=== PATIENT | male | born 1990 | race Two or more races ===

== ENCOUNTER 2020-02-17 12:49 | Emergency (ER) | payer OTHER ==
[2020-02-17 13:00] VITALS: BP 131/80; PULSE 93; RESP 20; TEMP 102.5
[2020-02-17] MEDS ORDERED: ACETAMINOPHEN TAB 325 MG TAB PO STA (13:27)
[2020-02-17] MEDS ORDERED: IBUPROFEN 600 MG TAB PO STA (13:38)
--- NOTE | 2020-02-17 14:34 | ED ---
Fever HPI - General Source: patient Mode of arrival: ambulatory Limitations: no limitations <Madeleine Osorio - Last Filed: 02/17/20 15:02> <Lindsey Montiel - Last Filed: 02/19/20 14:29> - General Chief Complaint: Fever Stated Complaint: fever, headache Time Seen by Provider: 02/17/20 13:29 - History of Present Illness Initial Comments: Patient is a 29-year-old male presenting to the emergency Department with complaints of a fever and generalized body aches for 4 days. Patient states he recently returned from [facility] and [place] one week ago. Patient states a couple days after he returned he started developing a mild headache and then low grade fevers. In the days that followed his states his fever has increased and he is having some generalized body aches, redness to his eyes as well as decreased appetite. He states he has been taking Tylenol for the fever which does decrease it. He denies history of asthma, COPD. He states he takes no medications and is very healthy. He denies any chest pain or shortness of breath. He denies any nausea or vomiting. He states he has been able to drink a lot of fluids including water and Gatorade. Patient denies any other complaints at this time. Upon arrival to the ER, patient was febrile to 102.5, rest of vitals are normal. Patient states she did take Tylenol approximately an hour and a half before arrival. (Madeleine Osorio) - Related Data Allergies Allergy/AdvReac Type Severity Reaction Status Date / Time No Known Allergies Allergy Verified 02/17/20 12:59 Review of Systems ROS Other: All systems not noted in ROS Statement are negative. <Madeleine Osorio - Last Filed: 02/17/20 15:02> ROS Other: All systems not noted in ROS Statement are negative. <Lindsey Montiel - Last Filed: 02/19/20 14:29> ROS Statement: Those systems with pertinent positive or pertinent negative responses have been documented in the HPI. Past Medical History Past Medical History: No Reported History History of Any Multi-Drug Resistant Organisms: None Reported Past Surgical History: No Surgical Hx Reported Past Psychological History: No Psychological Hx Reported Smoking Status: Never smoker Past Alcohol Use History: Occasional Past Drug Use History: None Reported <Madeleine Osorio - Last Filed: 02/17/20 15:02> General Exam Limitations: no limitations <Madeleine Osorio - Last Filed: 02/17/20 15:02> - General Exam Comments Initial Comments: GENERAL: Patient is well-developed and well-nourished. Patient is nontoxic and in no acute distress. HEAD: Atraumatic, normocephalic. EYES: Pupils equal round and reactive to light, extraocular movements intact, sclera anicteric, conjunctiva are very slightly injected bilaterally. Eyelids were unremarkable. ENT: TMs normal, nares patent, oropharynx clear without exudates. Moist mucous membranes. NECK: Normal range of motion, supple without lymphadenopathy or JVD. LUNGS: Unlabored respirations. Breath sounds clear to auscultation bilaterally and equal. No wheezes rales or rhonchi. HEART: Regular rate and rhythm without murmurs, rubs or gallops. ABDOMEN: Soft, nontender, normoactive bowel sounds. No guarding, no rebound. No masses appreciated. : Deferred MUSCULOSKELETAL: Normal extremities with adequate strength and normal range of motion, no pitting or edema. No clubbing or cyanosis. NEUROLOGICAL: Patient is alert and oriented x 3. Normal speech, normal gait. PSYCH: Normal mood, normal affect. SKIN: Warm, Dry, normal turgor, no rashes or lesions noted. (Madeleine Osorio) Course Vital Signs 02/17/20 12:55 Temperature 102.5 F H Pulse Rate 93 Respiratory 20 Rate Blood Pressure 131/80 O2 Sat by Pulse 99 Oximetry Medical Decision Making <Madeleine Osorio - Last Filed: 02/17/20 15:02> <Lindsey Montiel - Last Filed: 02/19/20 14:29> - Medical Decision Making Patient is a 29-year-old male presenting for a fever, generalized body aches, mild headache 4 days. Recently returned from [place] 1 week ago before symptoms developed. He did arrive febrile 102.5, rest of vitals normal. Patient is very healthy., takes no medications. His exam is unremarkable except for some mildly injected eyes. Chest x-ray shows no acute process. Patient was given Motrin in the ER. He did do Covid swab, that is pending. I discussed the patient is findings. I do suspect possible Covid infection. I recommended self isolating. Patient will continue with Tylenol and Motrin alternating every 4 hours for fever control. Continue to increase fluid intake. Return parameters were discussed with the patient he verbalizes understanding. He is stable for discharge. Case discussed with Dr. Montiel. (Madeleine Osorio) I was available for consultation in the emergency department. The history and physical exam were done by the midlevel provider. I was consulted for this patients care. I reviewed the case with the midlevel provider and based on their presentation of the patient, I agree with the assessment, medical decision making and plan of care as documented. Patient informed that if he has any new or worsening symptoms, he must return to the ED for further studies to include lab work, additional imaging and lumbar puncture due to headache with fever. Patient understood this and was aware of strict return parameters as the source of his infection is unknown at time of discharge. Chart was dictated using [employer] dictation software. Attempts were made to correct any dictation errors however some typographical errors may persist. Patient was seen during a national state of emergency due to the Covid-19 pandemic. (Lindsey Montiel) - Lab Data Lab Results 02/17/20 Range/Units 13:32 Coronavirus (PCR) Not Detected (Not Detected) Disposition Is patient prescribed a controlled substance at d/c from ED?: No <Madeleine Osorio - Last Filed: 02/17/20 15:02> <Lindsey Montiel - Last Filed: 02/19/20 14:29> Clinical Impression: Suspected COVID-19 virus infection, Febrile Disposition: HOME SELF-CARE Condition: Stable Instructions (If sedation given, give patient instructions): Fever in Adults (ED) Additional Instructions: Please return to the Emergency Department if symptoms worsen or any other concerns. Recommend continuing to alternate between Tylenol and Motrin every 4 hours for fever control. Continue to self isolate until COVID test results. Follow-up with PCP. Referrals: Nonstaff,Physician [Primary Care Provider] - 1-2 days
--- NOTE | 2020-02-17 14:45 | XR ---
EXAMINATION TYPE: XR chest 2V DATE OF EXAM ORDERED: 02/17/2020 HISTORY: fever. REFERENCE: None. FINDINGS: The lungs are clear. Pleural spaces are clear. Heart size is normal. IMPRESSION: NORMAL CHEST.
== END 2020-02-17 15:14 | disposition home or self-care (01) ==
LOC: EC 12:49
DX: R50.9 Fever, unspecified (principal); R51 Headache; Z20.828 Contact with and (suspected) exposure to other viral communicable diseases
CPT/HCPCS: 99283; 71046; U0003

== ENCOUNTER 2020-02-22 13:17 | Inpatient (IN) | payer OTHER ==
[2020-02-22] MEDS ORDERED: SODIUM CHLORIDE 0.9% 1,000 ML IV STA (14:27)
[2020-02-22 14:59] LABS: Basophils % (A) 1 %; Eosinophils # (A) 0.2 k/uL (0-0.7); Eosinophils % (A) 3 %; HCT 37.3 % (39.0-53.0); HGB 12.4 gm/dL (13.0-17.5); Lymphocytes # (A) 0.8 k/uL (1.0-4.8); Lymphocytes % (A) 16 %; MCH 28.2 pg (25.0-35.0); MCHC 33.2 g/dL (31.0-37.0); MCV 85.2 fL (80.0-100.0); Monocytes # (A) 0.4 k/uL (0-1.0); Monocytes % (A) 7 %; Neutrophils # (A) 3.7 k/uL (1.3-7.7); Neutrophils % (A) 72 %; Platelet Count 195 k/uL (150-450); RBC 4.38 m/uL (4.30-5.90); RDW 12.5 % (11.5-15.5); WBC 5.2 k/uL (3.8-10.6)
[2020-02-22 15:00] LABS: Appearance,Urine Clear (Clear); Bacteria,Urine Rare /hpf; Bilirubin,Urine Negative (Negative); Blood,Urine Trace (Negative); Color,Urine Yellow; Glucose,Urine (UA) Negative (Negative); Hyaline Casts,Urine 1 /lpf (0-2); Ketones,Urine Negative (Negative); Leukocyte Esterase,Urine Negative (Negative); Mucus,Urine Occasional /hpf; Nitrite,Urine Negative (Negative); PH, Urine 5.5 (5.0-8.0); Protein,Urine Trace (Negative); RBC,Urine 1 /hpf (0-5); Urobilinogen,Urine <2.0 mg/dL (<2.0); WBC,Urine <1 /hpf (0-5)
[2020-02-22 15:07] LABS: Albumin 4.2 g/dL (3.5-5.0); Calcium 8.7 mg/dL (8.4-10.2); Potassium 4.1 mmol/L (3.5-5.1); Total Bilirubin 0.6 mg/dL (0.2-1.3); Total Protein 7.2 g/dL (6.3-8.2)
--- NOTE | 2020-02-22 15:14 | XR ---
EXAMINATION TYPE: XR chest 1V portable DATE OF EXAM: 02/22/2020 CLINICAL HISTORY: Fever and headache TECHNIQUE: Portable frontal view of the chest COMPARISON: 02/17/2020 chest radiograph FINDINGS: The cardiomediastinal silhouette is within normal limits for size. Pulmonary vasculature i s normal. There is no focal air space opacity, pleural effusion, or pneumothorax seen. The osseous st ructures are intact. IMPRESSION: No acute cardiopulmonary process.
[2020-02-22] MEDS ORDERED: MORPHINE SULFATE 4 MG/ML SYRINGE IV STA (15:57)
--- NOTE | 2020-02-22 15:59 | CT ---
EXAMINATION TYPE: CT brain wo con DATE OF EXAM: 02/22/2020 COMPARISON: None INDICATION: Bilateral ear pain, mastoid tenderness, headache. DLP: 1153 mGycm, Automated exposure control for dose reduction was used. CONTRAST: None CT of the brain is performed utilizing 3 mm thick sections through the posterior fossa and 3 mm thick sections through the remaining calvarium. Study is performed within 24 hours of arrival to the hosp [facility]. No abnormal hyperdensity is present to suggest an acute intracranial hemorrhage. No mass lesion is evident. No acute infarcts are evident. Ventricles and sulci are appropriate for the patient age. Paranasal sinuses and mastoid air cells within the [id number] are clear. IMPRESSIONS: 1. Normal CT Brain
--- NOTE | 2020-02-22 16:05 | CT ---
EXAMINATION TYPE: CT iac w con DATE OF EXAM: 02/22/2020 COMPARISON: None INDICATION: Bilateral ear pain, mastoid tenderness, headache. DLP: 236.7 mGycm, Automated exposure control for dose reduction was used. CONTRAST: None CT of the internal auditory canals is performed utilizing 1 mm thick sections through the posterior f deborah and 1 mm thick sections through the remaining calvarium. Study is performed within 24 hours of arrival to the hospital. Mastoid air cells are clear. No septal destruction is evident. Internal auditory canals are normal wi thout expansion or erosion. Semicircular canals are normal. Cochlea are normal. Incus and malleus have normal orientation. Middle ears are clear. External auditory canals are clear. Paranasal sinuses within the [id number] are clear. Ostiomeatal units are patent. A right jenny bu llosa is noted, a normal variant. The scutum are normal. IMPRESSIONS: 1. Normal internal auditory canals. 2. No radiographic etiology to account for mastoid tenderness or ear pain
[2020-02-22] MEDS ORDERED: SODIUM CHLORIDE 0.9% 500 ML 500 ML IV ONE (16:08)
[2020-02-22] MEDS ORDERED: METOCLOPRAMIDE 5 MG/ML 2 ML VIAL IVP STA (16:23)
--- NOTE | 2020-02-22 16:23 | ED ---
General Adult HPI - General Source: patient, RN notes reviewed, old records reviewed Mode of arrival: ambulatory Limitations: no limitations <Migue Corrales - Last Filed: 02/22/20 19:11> <Lindsey Montiel - Last Filed: 02/25/20 00:02> - General Chief complaint: Fever Stated complaint: headache,fever Time Seen by Provider: 02/22/20 14:09 - History of Present Illness Initial comments: 29-year-old male patient with a chief complaint of headaches fevers bilateral mastoid and ear pain the last 8 days. Patient recently traveled to [place] afterwards he symptoms develop. Was previously tested for chronic versus which was negative. Patient reports that the headaches are consistent and the pain is intense. Also reports he's been having consistent fevers including one of 103.4 this morning. Denies any cough or congestion or any chest pain or shortness of breath. Denies abdominal pain nausea vomiting or diarrhea. Reports he has a decreased appetite and has had slightly decreased by mouth intake. Denies any neck stiffness or rigidity. Denies any other complaints. (Migue Corrales) - Related Data Home Medications Medication Instructions Recorded Confirmed Acetaminophen Tab [Tylenol Tab] 1,000 mg PO Q8H PRN 02/22/20 02/22/20 Ibuprofen 600 mg PO Q8H PRN 02/22/20 02/22/20 Loratadine-Pseudoeph 5-120 mg 1 tab PO Q12HR PRN 02/22/20 02/22/20 [Claritin-D 12 Hour] Magnesium Oxide [Magox 400] 400 mg PO DAILY 02/22/20 02/22/20 Previous Rx's Medication Instructions Recorded Levofloxacin [Levaquin] 750 mg PO DAILY 3 Days #3 tab 02/20/20 Allergies Allergy/AdvReac Type Severity Reaction Status Date / Time No Known Allergies Allergy Verified 02/22/20 14:35 Review of Systems ROS Other: All systems not noted in ROS Statement are negative. <Migue Corrales - Last Filed: 02/22/20 19:11> ROS Other: All systems not noted in ROS Statement are negative. <Lindsey Montiel - Last Filed: 02/25/20 00:02> ROS Statement: Those systems with pertinent positive or pertinent negative responses have been documented in the HPI. Past Medical History Past Medical History: No Reported History History of Any Multi-Drug Resistant Organisms: None Reported Past Surgical History: No Surgical Hx Reported Past Psychological History: No Psychological Hx Reported Smoking Status: Never smoker Past Alcohol Use History: Occasional Past Drug Use History: None Reported <Migue Corrales - Last Filed: 02/22/20 19:11> General Exam Limitations: no limitations <SavannaMigue Estrella - Last Filed: 02/22/20 19:11> - General Exam Comments Initial Comments: Constitutional: NAD, AOX3, Pt has pleasant affect. HEENT: NC/AT, trachea midline, neck supple, no lymphadenopathy. External ears appear normal, without discharge. Tympanic membrane pale rich bilaterally. There is a mild amount of bilateral posterior mastoid tenderness, no skin changes are noted. Mucous membranes moist. Eyes PERRLA, EOM intact. There is no scleral icterus. No pallor noted. Cardiopulmonary: RRR, no murmurs, rubs or gallops, no JVD noted. Lungs CTAB in anterior and posterior scherer. No peripheral edema. Abdominal exam: Abdomen soft and non-distended. Abdomen non-tender to palpation in all 4 quadrants. Bowel sounds active in LLQ. No hepatosplenomegaly. No ecchymosis Neuro: CN II-XII intact. No nuchal rigidity. No raccon eyes, no hunt sign, no hemotympanum. No cervical spinal tenderness. Kernig's and Brudzinski's are negative. MSK: No posterior calf tenderness bilaterally, homans sign negative bilaterally. Posterior tibialis and radial pulse +2 bilaterally. Sensation intact in upper and lower extremities. Full active ROM in upper and lower extremities, 5/5 stregnth. (Migue Corrales) Course Vital Signs 02/22/20 02/22/20 02/22/20 13:31 16:05 17:00 Temperature 99.1 F Pulse Rate 71 77 Respiratory 20 16 16 Rate Blood Pressure 127/74 150/92 O2 Sat by Pulse 100 98 Oximetry 02/22/20 02/22/20 02/22/20 17:09 18:00 19:00 Temperature Pulse Rate 73 76 74 Respiratory 16 16 16 Rate Blood Pressure 138/62 134/81 106/61 O2 Sat by Pulse 98 99 96 Oximetry 02/22/20 02/22/20 02/22/20 19:15 19:33 19:58 Temperature 102.4 F H Pulse Rate 68 82 78 Respiratory 16 16 16 Rate Blood Pressure 117/65 97/68 O2 Sat by Pulse 97 98 99 Oximetry 02/22/20 20:00 Temperature Pulse Rate Respiratory Rate Blood Pressure 145/69 O2 Sat by Pulse Oximetry Procedures - Lumbar Puncture Consent Obtained: verbal consent, written consent Indication for Procedure: headache, fever work up Patient Position: sitting upright/leaning forward Skin Prep: Povidone-Iodine 1% Local Anesthetic Used: Lidocaine 1% Spinal Needle Gauge: 20G Spinal Needle Length: 3.5in Interspace Used: L3-L4 Complications: Need to have other Practitioner Attempt, unable to obtain CSF Patient Tolerated Procedure: well <Lindsey Montiel - Last Filed: 02/25/20 00:02> Medical Decision Making - Lab Data Result diagrams: 02/22/20 14:41 02/22/20 14:41 <Migue Corrales - Last Filed: 02/22/20 19:11> - Lab Data Result diagrams: 02/24/20 06:59 02/24/20 06:59 <Lindsey Montiel - Last Filed: 02/25/20 00:02> - Medical Decision Making 29-year-old male patient no pertinent past medical history presents to ED for evaluation of headaches ear pain and fevers which have been ongoing for the last week and a half since he returned from [place] where he was with friends. Patient was previously seen in this emergency department 5 days ago he was tested for occult blood and was negative. Patient reports the headaches are constant and symptoms are persistent as well as fevers. Denies any cough congestion any other focal area of pain. Patient vital signs are stable. Physical exam displayed mild mastoid tenderness. Neurologic exam is intact. Tympanic membranes are pale rich. Patient has been on Bactrim and Levaquin without any changes in his symptoms. Laboratory investigations revealed a mildly elevated creatinine otherwise are non-impressive. CT brain without intra-articular canals with contrast are negative for acute process. Chest x- ray revealed no acute cardiopulmonary process. LP was recommended there was a significant delay as patient wanted to think about the procedure before consenting to it. It was explained in depth and patient was prompted for response on multiple occasions. Patient did consent at LP was performed. At this time patient care is being taken over by Dr. Montiel for shift change. (Migue Corrales) The patient's case was discussed with me. Because of his persistent headache, failure on 2 antibiotics with persistent fevers I did recommend lumbar puncture. Procedure was attempted by myself without success. My collegue Dr. Iglesias also attempted lumbar puncture however we was also unsuccessful. Patient was initiated on antibiotics for suspected meningitis. I recommended hospital admission with infectious disease and interventional radiology consult. Patient agreed to this. I discussed the case with Dr. Banda who agreed hospital admission. Patient is currently being transported to the floor (Lindsey Montiel) - Lab Data Lab Results 02/22/20 02/22/20 02/22/20 Range/Units 14:41 14:41 14:41 WBC 5.2 (3.8-10.6) k/uL RBC 4.38 (4.30-5.90) m/uL Hgb 12.4 L (13.0-17.5) gm/dL Hct 37.3 L (39.0-53.0) % MCV 85.2 (80.0-100.0) fL MCH 28.2 (25.0-35.0) pg MCHC 33.2 (31.0-37.0) g/dL RDW 12.5 (11.5-15.5) % Plt Count 195 (150-450) k/uL Neutrophils % 72 % Lymphocytes % 16 % Monocytes % 7 % Eosinophils % 3 % Basophils % 1 % Neutrophils # 3.7 (1.3-7.7) k/uL Lymphocytes # 0.8 L (1.0-4.8) k/uL Monocytes # 0.4 (0-1.0) k/uL Eosinophils # 0.2 (0-0.7) k/uL Basophils # 0.0 (0-0.2) k/uL Sodium 138 (137-145) mmol/L Potassium 4.1 (3.5-5.1) mmol/L Chloride 102 (98-107) mmol/L Carbon Dioxide 27 (22-30) mmol/L Anion Gap 9 mmol/L BUN 17 (9-20) mg/dL Creatinine 1.51 H (0.66-1.25) mg/dL Est GFR (CKD-EPI)AfAm 71 (>60 ml/min/1.73 sqM) Est GFR (CKD-EPI)NonAf 61 (>60 ml/min/1.73 sqM) Glucose 99 (74-99) mg/dL Plasma Lactic Acid Markel (0.7-2.0) mmol/L Calcium 8.7 (8.4-10.2) mg/dL Total Bilirubin 0.6 (0.2-1.3) mg/dL AST 30 (17-59) U/L ALT 22 (4-49) U/L Alkaline Phosphatase 61 (38-126) U/L Total Protein 7.2 (6.3-8.2) g/dL Albumin 4.2 (3.5-5.0) g/dL Urine Color Yellow Urine Appearance Clear (Clear) Urine pH 5.5 (5.0-8.0) Ur Specific [place] 1.020 (1.001-1.035) Urine Protein Trace H (Negative) Urine Glucose (UA) Negative (Negative) Urine Ketones Negative (Negative) Urine Blood Trace H (Negative) Urine Nitrite Negative (Negative) Urine Bilirubin Negative (Negative) Urine Urobilinogen <2.0 (<2.0) mg/dL Ur Leukocyte Esterase Negative (Negative) Urine RBC 1 (0-5) /hpf Urine WBC <1 (0-5) /hpf Urine Bacteria Rare H (None) /hpf Hyaline Casts 1 (0-2) /lpf Urine Mucus Occasional H (None) /hpf Coronavirus (PCR) (Not Detected) 02/22/20 02/22/20 Range/Units 14:41 14:41 WBC (3.8-10.6) k/uL RBC (4.30-5.90) m/uL Hgb (13.0-17.5) gm/dL Hct (39.0-53.0) % MCV (80.0-100.0) fL MCH (25.0-35.0) pg MCHC (31.0-37.0) g/dL RDW (11.5-15.5) % Plt Count (150-450) k/uL Neutrophils % % Lymphocytes % % Monocytes % % Eosinophils % % Basophils % % Neutrophils # (1.3-7.7) k/uL Lymphocytes # (1.0-4.8) k/uL Monocytes # (0-1.0) k/uL Eosinophils # (0-0.7) k/uL Basophils # (0-0.2) k/uL Sodium (137-145) mmol/L Potassium (3.5-5.1) mmol/L Chloride (98-107) mmol/L Carbon Dioxide (22-30) mmol/L Anion Gap mmol/L BUN (9-20) mg/dL Creatinine (0.66-1.25) mg/dL Est GFR (CKD-EPI)AfAm (>60 ml/min/1.73 sqM) Est GFR (CKD-EPI)NonAf (>60 ml/min/1.73 sqM) Glucose (74-99) mg/dL Plasma Lactic Acid Markel 0.5 L (0.7-2.0) mmol/L Calcium (8.4-10.2) mg/dL Total Bilirubin (0.2-1.3) mg/dL AST (17-59) U/L ALT (4-49) U/L Alkaline Phosphatase (38-126) U/L Total Protein (6.3-8.2) g/dL Albumin (3.5-5.0) g/dL Urine Color Urine Appearance (Clear) Urine pH (5.0-8.0) Ur Specific [place] (1.001-1.035) Urine Protein (Negative) Urine Glucose (UA) (Negative) Urine Ketones (Negative) Urine Blood (Negative) Urine Nitrite (Negative) Urine Bilirubin (Negative) Urine Urobilinogen (<2.0) mg/dL Ur Leukocyte Esterase (Negative) Urine RBC (0-5) /hpf Urine WBC (0-5) /hpf Urine Bacteria (None) /hpf Hyaline Casts (0-2) /lpf Urine Mucus (None) /hpf Coronavirus (PCR) Not Detected (Not Detected) Disposition <Migue Corrales - Last Filed: 02/22/20 19:11> Is patient prescribed a controlled substance at d/c from ED?: No Decision to Admit Reason: Admit from EC Decision Date: 02/22/20 Decision Time: 19:40 <Lindsey Montiel - Last Filed: 02/25/20 00:02> Clinical Impression: Febrile, Headache Disposition: ADMITTED IP TO THIS HOSP Condition: Serious
[2020-02-22] MEDS ORDERED: LIDOCAINE 1% INJ 10MG/ML (20 ML MDV) SQ STA (18:21)
[2020-02-22] MEDS ORDERED: MORPHINE SULFATE 4 MG/ML SYRINGE IVP STA (18:48)
[2020-02-22] MEDS ORDERED: ONDANSETRON 4 MG/2 ML VIAL IVP STA (19:00)
[2020-02-22] MEDS ORDERED: VANCOMYCIN IV PER PHARMACY 1 EACH MISC MISCELLANE PRN ×2 (19:08→20:45)
[2020-02-22] MEDS ORDERED: ACYCLOVIR SODIUM 1,150 MG in SODIUM CHLORIDE 0.9% 250 ML IV ONE (19:09)
[2020-02-22] MEDS ORDERED: VANCOMYCIN 1,750 MG in SODIUM CHLORIDE 0.9% 500 ML 500 ML IVPB STA (19:13)
[2020-02-22] MEDS ORDERED: ACETAMINOPHEN TAB 325 MG TAB PO STA (19:38)
[2020-02-22] MEDS ORDERED: MORPHINE SULFATE 4 MG/ML SYRINGE IV PRN (19:41)
[2020-02-22] MEDS ORDERED: IBUPROFEN 400 MG TAB PO PRN (19:41)
[2020-02-22] MEDS ORDERED: NALOXONE 0.4 MG/ML 1 ML VIAL IV PRN (19:41)
[2020-02-22] MEDS ORDERED: ACETAMINOPHEN TAB 325 MG TAB PO PRN (19:41)
[2020-02-22] MEDS: SODIUM CHLORIDE 0.9% 1,000 ML IV SCH (20:37)
[2020-02-22 21:11] LABS: D-Dimer 0.72 mg/L FEU (<0.60); INR 1.1 (<1.2); Prothrombin Time 10.9 sec (9.0-12.0)
[2020-02-22 21:17] LABS: C Reactive Protein 65.7 mg/L (<10.0); Phosphorus 2.5 mg/dL (2.5-4.5)
--- NOTE | 2020-02-22 22:19 | P.HPIM ---
History of Present Illness H&P Date: 02/22/20 Chief Complaint: fever of 8 days duration 29 year old male with no significant past medical history patient comes in with 8 days history of fever and chills. he reprots recent travel by air with family to [place] , limited contact with only people close within the family , none of them seem to be sick. few days after returning he started having fevers, chills, and severe headaches. no other reported symptoms . he denies any GI changes, denies nausea vomiting, SOB, or chest pain , denies myalgias. he reports severe throbbing headache, frontal radiates to both sides and the back of his head and neck, no neck stiffness, no focal neuro deficits. he denies any URI symptoms, or changes in taste or smell sensation . he is in good health otherwise, denies taking any medications or illegal drugs. he only drinks few beers occasionally . he was evaluated by a doctor virtually and was initially started on bactrim (received one or two doses) , then switched to levaquin (received 3 doses )no much benefit with either, he was evaluated in our ED 5 days ago and COVID swab was negative. he comes in again today due to worsening headache, and persistent fever. no other symptoms no one else sick in his family in the ED, blood work over all unremarkable . patient suspected to have meningitis, failed two attempts at getting LP. he was started on broad empiric antibiotic coverage. and admitted for close monitoring repeated COVID swab done in the ED Review of Systems Pertinent positives as noted in HPI. All other systems were reviewed and are negative Past Medical History Past Medical History: No Reported History History of Any Multi-Drug Resistant Organisms: None Reported Past Surgical History: No Surgical Hx Reported Past Psychological History: No Psychological Hx Reported Smoking Status: Never smoker Past Alcohol Use History: Occasional Past Drug Use History: None Reported Medications and Allergies Home Medications Medication Instructions Recorded Confirmed Type Levofloxacin [Levaquin] 750 mg PO DAILY 3 Days #3 tab 02/20/20 02/22/20 Rx Acetaminophen Tab [Tylenol Tab] 1,000 mg PO Q8H PRN 02/22/20 02/22/20 History Ibuprofen 600 mg PO Q8H PRN 02/22/20 02/22/20 History Loratadine-Pseudoeph 5-120 mg 1 tab PO Q12HR PRN 02/22/20 02/22/20 History [Claritin-D 12 Hour] Magnesium Oxide [Magox 400] 400 mg PO DAILY 02/22/20 02/22/20 History Allergies Allergy/AdvReac Type Severity Reaction Status Date / Time No Known Allergies Allergy Verified 02/22/20 14:35 Physical Exam Vitals: Vital Signs Temp Pulse Resp BP Pulse Ox 02/22/20 20:00 145/69 02/22/20 19:58 78 16 99 02/22/20 19:33 102.4 F H 82 16 97/68 98 02/22/20 19:15 68 16 117/65 97 02/22/20 19:00 74 16 106/61 96 02/22/20 18:00 76 16 134/81 99 02/22/20 17:09 73 16 138/62 98 02/22/20 17:00 16 02/22/20 16:05 77 16 150/92 98 02/22/20 13:31 99.1 F 71 20 127/74 100 Intake and Output 02/22/20 02/22/20 02/22/20 06:59 14:59 22:59 Intake Total 1500 Balance 1500 Intake: Amount of Fluid Infused ( 1500 ml) Other: Weight 113.398 kg Constitutional: No acute distress, conversant, pleasant Eyes: Anicteric sclerae, moist conjunctiva, Pupils equal round reactive to light ENMT: NC/AT Oropharynx clear, no erythema, or exudates Neck: no nuchal rigidity , Supple, FROM, no masses, or JVD No carotid bruits No thyromegaly Lungs: Clear to auscultation Clear to percussion Normal respiratory effort, no accessory muscle use Cardiovascular: Heart regular in rate and rhythm, No murmurs, gallops, or rubs No peripheral edema Abdominal: Soft Nontender, no guarding, rebound or rigidity Abdomen moving with respiration Normoactive bowel sounds No hepatomegaly, No splenomegaly No palpable mass No abdominal wall hernia noted Skin: Normal temperature, tone, texture, turgor No induration No subcutaneous nodules No rash, lesions No ulcers Extremities: No digital cyanosis No clubbing Pedal pulses intact and symmetrical Radial pulses intact and symmetrical No calf tenderness Psychiatric: Alert and oriented to person, place and time Appropriate affect fair judgement Neuro Muscles Strength 5/5 in all 4 extremities Sensation to light touch grossly present throughout Cranial nerves II-XII grossly intact No focal sensory deficits Lymphatics: no palpable cervical or supraclavicular , or inguinal lymph nodes Results CBC & Chem 7: 02/22/20 14:41 02/22/20 14:41 Labs: Abnormal Lab Results - Last 24 Hours (Table) 02/22/20 02/22/20 02/22/20 Range/Units 14:41 14:41 14:41 Hgb 12.4 L (13.0-17.5) gm/dL Hct 37.3 L (39.0-53.0) % Lymphocytes # 0.8 L (1.0-4.8) k/uL Creatinine 1.51 H (0.66-1.25) mg/dL Plasma Lactic Acid Markel (0.7-2.0) mmol/L Urine Protein Trace H (Negative) Urine Blood Trace H (Negative) Urine Bacteria Rare H (None) /hpf Urine Mucus Occasional H (None) /hpf 02/22/20 Range/Units 14:41 Hgb (13.0-17.5) gm/dL Hct (39.0-53.0) % Lymphocytes # (1.0-4.8) k/uL Creatinine (0.66-1.25) mg/dL Plasma Lactic Acid Markel 0.5 L (0.7-2.0) mmol/L Urine Protein (Negative) Urine Blood (Negative) Urine Bacteria (None) /hpf Urine Mucus (None) /hpf Assessment and Plan Assessment: acute fever, with headache high suspicion of COVID 19 infection , rule out meningitis failed two attempts of LP in the ED, patient started on empiric ABx coverage including antiviral ID consultation isolation , contact and droplet for prognostic and rish stratification of COIVD 19 check INR, D dimer , PCT, CPK, Trop, ferritin , CRP, LDH symptomatic control follow up blood culture IVF hydration with normal saline normal WBC with lymphocytopenia CODE STATUS:full code DVT prophylaxis: heparin sc Discussed with: Patient, ER, RN Anticipated length of stay > than [address]: home A total of 75 minutes was spent on the care of this complex patient more than 50% of the time was spent in counseling and care coordination.
[2020-02-22] MEDS: HEPARIN SODIUM,PORCINE 5,000 UNIT/ML 1 ML VIAL SQ SCH (23:48)
[2020-02-23] MEDS ORDERED: ACYCLOVIR SODIUM 1,000 MG in SODIUM CHLORIDE 0.9% 250 ML IVPB SCH ×2
[2020-02-23] MEDS: ACETAMINOPHEN TAB 325 MG TAB PO PRN ×2 (02:29→09:36)
[2020-02-23 03:35] LABS: Ferritin 338.7 ng/mL (22.0-322.0)
[2020-02-23] MEDS: ACYCLOVIR SODIUM IVPB SCH ×3 (04:22→20:56)
[2020-02-23] MEDS: ONDANSETRON 4 MG/2 ML VIAL IVP PRN (04:22)
[2020-02-23] MEDS: SODIUM CHLORIDE 0.9% IVPB SCH ×3 (04:22→20:56)
[2020-02-23 07:46] LABS: Basophils % (A) 0 %; Eosinophils # (A) 0.1 k/uL (0-0.7); Eosinophils % (A) 2 %; HCT 33.3 % (39.0-53.0); HGB 10.9 gm/dL (13.0-17.5); Lymphocytes # (A) 0.8 k/uL (1.0-4.8); Lymphocytes % (A) 15 %; MCH 27.9 pg (25.0-35.0); MCHC 32.6 g/dL (31.0-37.0); MCV 85.6 fL (80.0-100.0); Mean Platelet Volume 7.9; Monocytes # (A) 0.4 k/uL (0-1.0); Monocytes % (A) 7 %; Neutrophils # (A) 3.9 k/uL (1.3-7.7); Neutrophils % (A) 75 %; Platelet Count 173 k/uL (150-450); RBC 3.88 m/uL (4.30-5.90); RDW 12.4 % (11.5-15.5); WBC 5.2 k/uL (3.8-10.6)
[2020-02-23 07:56] LABS: Albumin 3.5 g/dL (3.5-5.0); Calcium 7.9 mg/dL (8.4-10.2); Potassium 3.9 mmol/L (3.5-5.1); Total Bilirubin 0.4 mg/dL (0.2-1.3); Total Protein 6.2 g/dL (6.3-8.2)
[2020-02-23] MEDS ORDERED: MORPHINE SULFATE 2 MG/ML SYRINGE IV PRN (08:15)
[2020-02-23] MEDS ORDERED: VANCOMYCIN 1,750 MG in SODIUM CHLORIDE 0.9% 500 ML 500 ML IVPB SCH (09:00)
[2020-02-23] MEDS: HEPARIN SODIUM,PORCINE 5,000 UNIT/ML 1 ML VIAL SQ SCH ×3 (09:37→23:00)
--- NOTE | 2020-02-23 14:24 | P.PN ---
Subjective Progress Note Date: 02/23/20 Patient is still complaining of headache this morning. He rated his headache as 10 out of 10. He denies fevers or chills. No shortness of breath or cough. No diarrhea. Objective - Vital Signs Vital signs: Vital Signs Temp 98.0 F 02/23/20 13:44 Pulse 102 H 02/23/20 13:44 Resp 17 02/23/20 13:44 BP 130/77 02/23/20 13:44 Pulse Ox 99 02/23/20 13:44 Intake & Output 02/22/20 02/23/20 02/23/20 18:59 06:59 18:59 Intake Total 2550 1100 Balance 2550 1100 Weight 113.398 kg 113.398 kg Intake: Amount of Fluid Infused ( 1500 ml) Intake, IV Titration 500 Amount Vancomycin 1,750 mg In 500 Sodium Chloride 0.9% 500 ml 500 ml @ 167 mls/hr IVPB ONCE [facility] Rx#: [id number] Oral 1050 600 Other: Voiding Method Toilet Toilet # Voids 2 3 # Bowel Movements 1 - Exam General: The patient is awake and alert, in no distress Eye: there is normal conjunctiva bilaterally. Neck: The neck is supple, there is no JVD. Cardiovascular: Normal S1-S2, no S3-S4, no murmurs. Respiratory: Lungs clear to auscultation bilaterally Gastrointestinal: Abdomen is soft, nontender Musculoskeletal: There is no pedal edema. Neurological:. Speech is normal. Skin: Skin is warm and dry - Labs CBC & Chem 7: 02/23/20 07:02 02/23/20 07:02 Labs: Abnormal Lab Results - Last 24 Hours (Table) 02/22/20 02/22/20 02/22/20 Range/Units 14:41 14:41 14:41 RBC (4.30-5.90) m/uL Hgb 12.4 L (13.0-17.5) gm/dL Hct 37.3 L (39.0-53.0) % Lymphocytes # 0.8 L (1.0-4.8) k/uL D-Dimer (<0.60) mg/L FEU Creatinine 1.51 H (0.66-1.25) mg/dL Plasma Lactic Acid Markel (0.7-2.0) mmol/L Calcium (8.4-10.2) mg/dL Ferritin (22.0-322.0) ng/mL Troponin I (0.000-0.034) ng/mL C-Reactive Protein (<10.0) mg/L Total Protein (6.3-8.2) g/dL Procalcitonin (0.02-0.09) ng/mL Urine Protein Trace H (Negative) Urine Blood Trace H (Negative) Urine Bacteria Rare H (None) /hpf Urine Mucus Occasional H (None) /hpf 02/22/20 02/22/20 02/22/20 Range/Units 14:41 20:40 20:40 RBC (4.30-5.90) m/uL Hgb (13.0-17.5) gm/dL Hct (39.0-53.0) % Lymphocytes # (1.0-4.8) k/uL D-Dimer 0.72 H (<0.60) mg/L FEU Creatinine (0.66-1.25) mg/dL Plasma Lactic Acid Markel 0.5 L (0.7-2.0) mmol/L Calcium (8.4-10.2) mg/dL Ferritin 338.7 H (22.0-322.0) ng/mL Troponin I (0.000-0.034) ng/mL C-Reactive Protein 65.7 H (<10.0) mg/L Total Protein (6.3-8.2) g/dL Procalcitonin (0.02-0.09) ng/mL Urine Protein (Negative) Urine Blood (Negative) Urine Bacteria (None) /hpf Urine Mucus (None) /hpf 02/22/20 02/22/20 02/23/20 Range/Units 20:40 20:40 07:02 RBC 3.88 L (4.30-5.90) m/uL Hgb 10.9 L (13.0-17.5) gm/dL Hct 33.3 L (39.0-53.0) % Lymphocytes # 0.8 L (1.0-4.8) k/uL D-Dimer (<0.60) mg/L FEU Creatinine (0.66-1.25) mg/dL Plasma Lactic Acid Markel (0.7-2.0) mmol/L Calcium (8.4-10.2) mg/dL Ferritin (22.0-322.0) ng/mL Troponin I 0.045 H* (0.000-0.034) ng/mL C-Reactive Protein (<10.0) mg/L Total Protein (6.3-8.2) g/dL Procalcitonin 0.20 H (0.02-0.09) ng/mL Urine Protein (Negative) Urine Blood (Negative) Urine Bacteria (None) /hpf Urine Mucus (None) /hpf 02/23/20 Range/Units 07:02 RBC (4.30-5.90) m/uL Hgb (13.0-17.5) gm/dL Hct (39.0-53.0) % Lymphocytes # (1.0-4.8) k/uL D-Dimer (<0.60) mg/L FEU Creatinine 1.43 H (0.66-1.25) mg/dL Plasma Lactic Acid Markel (0.7-2.0) mmol/L Calcium 7.9 L (8.4-10.2) mg/dL Ferritin (22.0-322.0) ng/mL Troponin I (0.000-0.034) ng/mL C-Reactive Protein (<10.0) mg/L Total Protein 6.2 L (6.3-8.2) g/dL Procalcitonin (0.02-0.09) ng/mL Urine Protein (Negative) Urine Blood (Negative) Urine Bacteria (None) /hpf Urine Mucus (None) /hpf Assessment and Plan Assessment: acute fever, with headache high suspicion of COVID 19 infection , rule out meningitis Acute kidney injury failed two attempts of LP in the ED, patient started on empiric ABx coverage including antiviral ID consultation pending isolation , contact and droplet Elevated D dimer , CRP, Trop, ferritin , and pro-calcitonin symptomatic control follow up blood culture IVF hydration with normal saline at 75 mL per hour normal WBC with lymphocytopenia DVT prophylaxis with subcu heparin Repeat lab work in the morning
[2020-02-23] MEDS: BUTALB/APAP/CAFF 50-325-40MG TAB PO PRN ×3 (15:33→22:56)
--- NOTE | 2020-02-23 16:23 | P.CONS ---
History of Present Illness - Reason for Consult Consult date: 02/23/20 Possible meningitis Requesting physician: Shu Dunbar - Chief Complaint Fever and headache 1 week - History of Present Illness Patient is a 29-year-old male otherwise healthy presenting to the ER with a chief complaints of worsening headache and fever, the patient's symptoms started about a week ago, patient did have a travel to [place] a week prior to his symptoms started patients say that he went to a rented house and did brought his mom back with him to [place] patient did not have any other social interaction with anybody else and his mom currently do not have any symptoms, the patient's symptoms started around 02/13/2020 and the patient was seen for the same symptoms on 02/17/2020 at [facility], patient did have abnormal chest x-ray patient was advised Tylenol and Motrin along with self isolation with the patient has been doing for the next 4 days without any improvement, hence he presented back to the [facility] ER yesterday that is 02/22/2020, Patient was complaining of some pain into his left ear as well as the patient did have a chest x-ray reported negative for acute infiltrate. CT of the brain was negative CT of the internal auditory canal was negative as well, patient did have multiple times for lumbar puncture yesterday and it could not be completed, patient presented to the hospital did have a fever of 102.4F, no fever this morning, patient did have a normal white count with lymphopenia his kidney function was slightly elevated liver enzymes are normal troponin is mildly elevated 0.045, the patient denies having any chest pain or shortness of breath patient did have elevated CRP however his pro-calcitonin is elevated as well, patient was started on Rocephin and vancomycin and acyclovir has been admitted to the hospital infectious disease was consulted for further management of antibiotic therapy. Patient at that time of my evaluation early this afternoon is afebrile he still complaining of headache which is generalized throbbing and almost 10 out of 10 did have an episode of vomiting denies having any chest pain or shortness of breath no cough no abdominal pain and no diarrhea Review of Systems Positive point has been mentioned in the HPI rest of the systems are negative Past Medical History Past Medical History: No Reported History History of Any Multi-Drug Resistant Organisms: None Reported Past Surgical History: No Surgical Hx Reported Past Anesthesia/Blood Transfusion Reactions: No Reported Reaction Past Psychological History: No Psychological Hx Reported Smoking Status: Never smoker Past Alcohol Use History: Occasional Past Drug Use History: None Reported Medications and Allergies Home Medications Medication Instructions Recorded Confirmed Type Levofloxacin [Levaquin] 750 mg PO DAILY 3 Days #3 tab 02/20/20 02/22/20 Rx Acetaminophen Tab [Tylenol Tab] 1,000 mg PO Q8H PRN 02/22/20 02/22/20 History Ibuprofen 600 mg PO Q8H PRN 02/22/20 02/22/20 History Loratadine-Pseudoeph 5-120 mg 1 tab PO Q12HR PRN 02/22/20 02/22/20 History [Claritin-D 12 Hour] Magnesium Oxide [Magox 400] 400 mg PO DAILY 02/22/20 02/22/20 History Allergies Allergy/AdvReac Type Severity Reaction Status Date / Time No Known Allergies Allergy Verified 02/22/20 14:35 Physical Exam Vitals: Vital Signs Temp Pulse Pulse Resp BP BP Pulse Ox 02/23/20 13:44 98.0 F 102 H 17 130/77 99 02/23/20 08:00 69 18 02/23/20 07:00 99.4 F 69 18 157/82 100 02/23/20 02:30 99.8 F H 72 114/72 98 02/22/20 20:35 100.1 F H 77 17 128/75 96 02/22/20 20:00 145/69 02/22/20 19:58 78 16 99 02/22/20 19:33 102.4 F H 82 16 97/68 98 02/22/20 19:15 68 16 117/65 97 02/22/20 19:00 74 16 106/61 96 02/22/20 18:00 76 16 134/81 99 02/22/20 17:09 73 16 138/62 98 02/22/20 17:00 16 02/22/20 16:05 77 16 150/92 98 Intake and Output 02/23/20 02/23/20 02/23/20 06:59 14:59 22:59 Intake Total 300 1100 Balance 300 1100 Intake: Intake, IV Titration 500 Amount Vancomycin 1,750 mg In 500 Sodium Chloride 0.9% 500 ml 500 ml @ 167 mls/hr IVPB ONCE [facility] Rx#: [id number] Oral 300 600 Other: Voiding Method Toilet # Voids 2 3 # Bowel Movements 1 GENERAL DESCRIPTION: Middle-aged male up in the room, no distress. No tachypnea or accessory muscle of respiration use. HEENT: Shows Pallor , no scleral icterus. Oral mucous membrane is dry. No pharyngeal erythema or thrush NECK: Trachea central, no thyromegaly. LUNGS: Unlabored breathing. Clear to auscultation anteriorly. No wheeze or crackle. HEART: S1, S2, regular rate and rhythm. No loud murmur ABDOMEN: Soft, no tenderness , guarding or rigidity, no organomegaly EXTREMITIES: No edema of feet. SKIN: No rash, no masses palpable. NEUROLOGICAL: The patient is awake, alert, oriented x3, mood and affect normal. Results CBC & Chem 7: 02/23/20 07:02/23/20 07: Labs: Abnormal Lab Results - Last 24 Hours (Table) 02/22/20 02/22/20 02/22/20 Range/Units 20:40 20:40 20:40 RBC (4.30-5.90) m/uL Hgb (13.0-17.5) gm/dL Hct (39.0-53.0) % Lymphocytes # (1.0-4.8) k/uL D-Dimer 0.72 H (<0.60) mg/L FEU Creatinine (0.66-1.25) mg/dL Calcium (8.4-10.2) mg/dL Ferritin 338.7 H (22.0-322.0) ng/mL Troponin I 0.045 H* (0.000-0.034) ng/mL C-Reactive Protein 65.7 H (<10.0) mg/L Total Protein (6.3-8.2) g/dL Procalcitonin (0.02-0.09) ng/mL 02/22/20 02/23/20 02/23/20 Range/Units 20:40 07:02 07:02 RBC 3.88 L (4.30-5.90) m/uL Hgb 10.9 L (13.0-17.5) gm/dL Hct 33.3 L (39.0-53.0) % Lymphocytes # 0.8 L (1.0-4.8) k/uL D-Dimer (<0.60) mg/L FEU Creatinine 1.43 H (0.66-1.25) mg/dL Calcium 7.9 L (8.4-10.2) mg/dL Ferritin (22.0-322.0) ng/mL Troponin I (0.000-0.034) ng/mL C-Reactive Protein (<10.0) mg/L Total Protein 6.2 L (6.3-8.2) g/dL Procalcitonin 0.20 H (0.02-0.09) ng/mL Assessment and Plan Assessment: 1- patient presented to hospital with fever and headache that has been going on for more than a week now the patient did have a nasopharyngeal swab for COVID 19 done on February 16 that was negative patient currently do not have any respiratory symptoms and chest x-ray has been negative clinical suspicious low for viral pneumonia, with predominantly headache and a fever may concern is for meningitis. 2- the patient also have mildly elevated troponin though his CPKs were normal and the patient currently do not have any symptoms of chest pain or shortness of breath that could point towards possible pericarditis to be etiology of his fe mary though may benefit from serial cardiac enzymes and possible echocardiogram or cardiology evaluation, this was discussed in detail with the admitting physician (1) Febrile Current Visit: Yes Status: Acute Code(s): R50.9 - FEVER, UNSPECIFIED SNOMED Code(s): 012621110 (2) Suspected COVID-19 virus infection Current Visit: No Status: Acute Code(s): Z20.828 - CONTACT W AND EXPOSURE TO OTH VIRAL COMMUNICABLE DISEASES SNOMED Code(s): 448631986 Plan: 1- we will consult anesthesia for a stat lumbar puncture fluid should be sent for cell count differential glucose protein and HSV DNA by PCR 2- may benefit from serial cardiac enzymes and an echocardiogram 3- continue with current broad-spectrum antibiotic in the form of Rocephin and vancomycin and acyclovir while awaiting further workup to be completed and monitor his kidney function closely We will follow on clinical condition and cultures to further adjust medication i f needed Thank you for this consultation will follow this patient with you Time with Patient: Greater than 30
[2020-02-23] MEDS: SODIUM CHLORIDE 0.9% 1,000 ML IV SCH ×3 (19:12→22:59)
[2020-02-23] MEDS: VANCOMYCIN 2,000 MG in SODIUM CHLORIDE 0.9% 500 ML 500 ML IVPB SCH (20:55)
[2020-02-23] MEDS: MELATONIN 3 MG TABLET PO SCH (22:56)
[2020-02-24] MEDS: ACYCLOVIR SODIUM IVPB SCH ×3 (05:25→20:53)
[2020-02-24] MEDS: SODIUM CHLORIDE 0.9% IVPB SCH ×3 (05:25→20:53)
[2020-02-24] MEDS: ONDANSETRON 4 MG/2 ML VIAL IVP PRN (05:25)
[2020-02-24] MEDS: BUTALB/APAP/CAFF 50-325-40MG TAB PO PRN ×4 (05:28→16:57)
[2020-02-24 07:19] LABS: Basophils % (A) 0 %; Eosinophils # (A) 0.1 k/uL (0-0.7); Eosinophils % (A) 2 %; HCT 32.1 % (39.0-53.0); HGB 10.7 gm/dL (13.0-17.5); Lymphocytes # (A) 0.8 k/uL (1.0-4.8); Lymphocytes % (A) 16 %; MCH 28.1 pg (25.0-35.0); MCHC 33.2 g/dL (31.0-37.0); MCV 84.8 fL (80.0-100.0); Mean Platelet Volume 8.6; Monocytes # (A) 0.3 k/uL (0-1.0); Monocytes % (A) 6 %; Neutrophils % (A) 75 %; Platelet Count 167 k/uL (150-450); RBC 3.79 m/uL (4.30-5.90); RDW 12.3 % (11.5-15.5); WBC 5.4 k/uL (3.8-10.6)
[2020-02-24 07:30] LABS: Calcium 8.2 mg/dL (8.4-10.2); Potassium 3.8 mmol/L (3.5-5.1)
[2020-02-24] MEDS: VANCOMYCIN 2,000 MG in SODIUM CHLORIDE 0.9% 500 ML 500 ML IVPB SCH ×2 (09:02→20:01)
[2020-02-24] MEDS: HEPARIN SODIUM,PORCINE 5,000 UNIT/ML 1 ML VIAL SQ SCH ×3 (09:02→23:11)
--- NOTE | 2020-02-24 18:13 | P.PN ---
Subjective Patient is still complaining of headache today. No fevers or chills. Objective - Vital Signs Vital signs: Vital Signs Temp 97.7 F 02/24/20 14:58 Pulse 64 02/24/20 15:31 Resp 18 02/24/20 15:31 BP 136/84 02/24/20 14:58 Pulse Ox 98 02/24/20 14:58 Intake & Output 02/23/20 02/24/20 02/24/20 18:59 06:59 18:59 Intake Total 1100 1400 1850 Balance 1100 1400 1850 Intake: Intake, IV Titration 500 1400 1400 Amount Acyclovir Sodium 1,100 mg 250 250 In Sodium Chloride 0.9% 250 ml @ 270 mls/hr IVPB Q8H [facility] Rx#:[id number] Sodium Chloride 0.9% 1, 600 600 000 ml @ 75 mls/hr IV . [id number] [facility] Rx#:[id number] Vancomycin 1,750 mg In 500 Sodium Chloride 0.9% 500 ml 500 ml @ 167 mls/hr IVPB ONCE [facility] Rx#: [id number] Vancomycin 2,000 mg In 500 500 Sodium Chloride 0.9% 500 ml 500 ml @ 167 mls/hr IVPB Q12H [facility] Rx#: [id number] cefTRIAXone 2 gm In 50 50 Sodium Chloride 0.9% 50 ml @ 100 mls/hr IVPB Q12HR [facility] Rx#:[id number] Oral 600 450 Other: Voiding Method Toilet Toilet Toilet # Voids 3 2 3 # Bowel Movements 1 - Exam General: The patient is awake and alert, in no distress Eye: there is normal conjunctiva bilaterally. Neck: The neck is supple, there is no JVD. Cardiovascular: Normal S1-S2, no S3-S4, no murmurs. Respiratory: Lungs clear to auscultation bilaterally Gastrointestinal: Abdomen is soft, nontender Musculoskeletal: There is no pedal edema. Neurological:. Speech is normal. Skin: Skin is warm and dry - Labs CBC & Chem 7: 02/24/20 06:59 02/24/20 06:59 Labs: Abnormal Lab Results - Last 24 Hours (Table) 02/24/20 02/24/20 Range/Units 06:59 06:59 RBC 3.79 L (4.30-5.90) m/uL Hgb 10.7 L (13.0-17.5) gm/dL Hct 32.1 L (39.0-53.0) % Lymphocytes # 0.8 L (1.0-4.8) k/uL Sodium 136 L (137-145) mmol/L Creatinine 1.38 H (0.66-1.25) mg/dL Glucose 100 H (74-99) mg/dL Calcium 8.2 L (8.4-10.2) mg/dL Microbiology - Last 24 Hours (Table) 02/22/20 14:41 Blood Culture - Preliminary Blood No Growth after 48 hours Assessment and Plan Assessment: acute fever, with headache, need to rule out meningitis COVID 19 infection ruled out Acute kidney injury Troponin elevation on presentation, most likely non-thrombotic troponin leak. Repeat troponin negative. Echocardiogram ordered for further evaluation. failed two attempts of LP in the ED, patient started on empiric ABx coverage including antiviral ID consultation appreciated Blood culture negative to date Awaiting lumbar puncture by IR possibly tomorrow symptomatic control follow up blood culture IVF hydration with normal saline at 75 mL per hour DVT prophylaxis with subcu heparin Repeat lab work in the morning
[2020-02-24] MEDS: SODIUM CHLORIDE 0.9% 1,000 ML IV SCH (19:50)
[2020-02-24] MEDS: ACETAMINOPHEN TAB 325 MG TAB PO PRN (20:09)
[2020-02-24] MEDS ORDERED: SUMAtriptan succinate 25 MG TAB PO STA (20:56)
[2020-02-24] MEDS: MELATONIN 3 MG TABLET PO SCH (23:11)
--- NOTE | 2020-02-25 00:21 | PN ---
PROGRESS NOTE DATE OF SERVICE: 02/24/2020 REASON FOR FOLLOWUP: Headache, fever and question of meningitis. INTERVAL HISTORY: The patient is currently afebrile. No fever has been recorded since yesterday morning. The patient's headache has improved, currently controlled with medications he is receiving. No further vomiting. No chest pain, shortness of breath or cough. No abdominal pain, no diarrhea. PHYSICAL EXAMINATION: Blood pressure 136/84 with a pulse of 64, temperature 97.7. He is 98% on room air. General description is a young male up in the bed in no distress. RESPIRATORY SYSTEM: Unlabored breathing, clear to auscultation. No wheeze or crackle. HEART: S1, S2. Regular rate and rhythm. ABDOMEN: Soft, no tenderness. LABS: Hemoglobin is 10.7, white count 5.4 BUN of 17, creatinine 1.38. Repeat troponin came back negative. Liver enzymes are normal. PCR elevated at 65.7: [place] PCR came back negative. DIAGNOSTIC IMPRESSION AND PLAN: Patient with fever and headache with concern for meningitis question of bacterial versus viral. Clinical behavior more of a viral meningitis. LP was requested yesterday. Unfortunately, it was not done. Still waiting for LP to be finalize in view of current response to the antibiotic regime of Rocephin, vancomycin and acyclovir to continue until the workup is completed. Continue supportive care. MMODL / IJN: [id number] / MTDD
[2020-02-25] MEDS: ACYCLOVIR SODIUM IVPB SCH ×3 (05:09→21:19)
[2020-02-25] MEDS: SODIUM CHLORIDE 0.9% IVPB SCH ×3 (05:09→21:19)
[2020-02-25] MEDS: ONDANSETRON 4 MG/2 ML VIAL IVP PRN (06:20)
[2020-02-25] MEDS: BUTALB/APAP/CAFF 50-325-40MG TAB PO PRN (06:20)
[2020-02-25] MEDS: ACETAMINOPHEN TAB 325 MG TAB PO PRN (06:25)
[2020-02-25] MEDS: HEPARIN SODIUM,PORCINE 5,000 UNIT/ML 1 ML VIAL SQ SCH ×3 (07:04→22:50)
[2020-02-25] MEDS: SODIUM CHLORIDE 0.9% 1,000 ML IV SCH ×2 (07:13→11:45)
[2020-02-25 07:58] LABS: Basophils % (A) 0 %; Eosinophils # (A) 0.1 k/uL (0-0.7); Eosinophils % (A) 2 %; HGB 10.8 gm/dL (13.0-17.5); Lymphocytes # (A) 0.9 k/uL (1.0-4.8); Lymphocytes % (A) 15 %; MCH 28.5 pg (25.0-35.0); MCHC 33.8 g/dL (31.0-37.0); MCV 84.5 fL (80.0-100.0); Mean Platelet Volume 7.8; Monocytes # (A) 0.3 k/uL (0-1.0); Monocytes % (A) 6 %; Neutrophils # (A) 4.4 k/uL (1.3-7.7); Neutrophils % (A) 76 %; Platelet Count 174 k/uL (150-450); RBC 3.78 m/uL (4.30-5.90); RDW 12.3 % (11.5-15.5); WBC 5.8 k/uL (3.8-10.6)
[2020-02-25] MEDS ORDERED: VANCOMYCIN TROUGH DUE 1 EACH MISC MISCELLANE ONE (08:00)
[2020-02-25 08:15] LABS: Calcium 7.9 mg/dL (8.4-10.2); Potassium 3.9 mmol/L (3.5-5.1)
[2020-02-25] MEDS: VANCOMYCIN 2,000 MG in SODIUM CHLORIDE 0.9% 500 ML 500 ML IVPB SCH ×2 (08:57→21:19)
--- NOTE | 2020-02-25 09:34 | P.PN ---
Subjective Progress Note Date: 02/25/20 Patient reported improvement in his headache after a dose of Imitrex last night. Awaiting lumbar puncture by IR today. Objective - Vital Signs Vital signs: Vital Signs Temp 99.2 F 02/25/20 07:07 Pulse 74 02/25/20 07:07 Resp 18 02/25/20 07:07 BP 153/70 02/25/20 07:07 Pulse Ox 96 02/25/20 07:07 Intake & Output 02/24/20 02/25/20 02/25/20 18:59 06:59 18:59 Intake Total 1850 260 Balance 1850 260 Intake: Intake, IV Titration 1400 Amount Acyclovir Sodium 1,100 mg 250 In Sodium Chloride 0.9% 250 ml @ 270 mls/hr IVPB Q8H [facility] Rx#:[id number] Sodium Chloride 0.9% 1, 600 000 ml @ 75 mls/hr IV . [id number] [facility] Rx#:[id number] Vancomycin 2,000 mg In 500 Sodium Chloride 0.9% 500 ml 500 ml @ 167 mls/hr IVPB Q12H [facility] Rx#: [id number] cefTRIAXone 2 gm In 50 Sodium Chloride 0.9% 50 ml @ 100 mls/hr IVPB Q12HR [facility] Rx#:[id number] Oral 450 260 Other: Voiding Method Toilet # Voids 3 - Exam General: The patient is awake and alert, in no distress Eye: there is normal conjunctiva bilaterally. Neck: The neck is supple, there is no JVD. Cardiovascular: Normal S1-S2, no S3-S4, no murmurs. Respiratory: Lungs clear to auscultation bilaterally Gastrointestinal: Abdomen is soft, nontender Musculoskeletal: There is no pedal edema. Neurological:. Speech is normal. Skin: Skin is warm and dry - Labs CBC & Chem 7: 02/25/20 07:43 02/25/20 07:43 Labs: Abnormal Lab Results - Last 24 Hours (Table) 02/25/20 02/25/20 Range/Units 07:43 07:43 RBC 3.78 L (4.30-5.90) m/uL Hgb 10.8 L (13.0-17.5) gm/dL Hct 32.0 L (39.0-53.0) % Lymphocytes # 0.9 L (1.0-4.8) k/uL Sodium 136 L (137-145) mmol/L Creatinine 1.53 H (0.66-1.25) mg/dL Calcium 7.9 L (8.4-10.2) mg/dL Microbiology - Last 24 Hours (Table) 02/22/20 14:41 Blood Culture - Preliminary Blood No Growth after 48 hours Assessment and Plan Assessment: -acute fever, with headache, need to rule out meningitis -COVID 19 infection ruled out -Acute kidney injury: Thought to be attributed to sepsis on presentation. Creatinine not improving after aggressive IV fluid hydration. I will consult nephrology for further evaluation. -Troponin elevation on presentation, most likely non-thrombotic troponin leak. Repeat troponin negative. Echocardiogram ordered for further evaluation. failed two attempts of LP in the ED, patient started on empiric ABx coverage including antiviral ID consultation appreciated Blood culture negative to date Awaiting lumbar puncture by IR today symptomatic control Blood culture negative to date IVF hydration with normal saline at 75 mL per hour DVT prophylaxis with subcu heparin Repeat lab work in the morning
--- NOTE | 2020-02-25 11:00 | ECHOF ---
Referral Reason:r/o pericardial effusion MEASUREMENTS -------- HEIGHT: 193.0 cm WEIGHT: 113.4 kg BP: 153/70 IVSd: 1.3 cm (0.6 - 1.1) LVIDd: 5.8 cm (3.9 - 5.3) LVPWd: 1.3 cm (0.6 - 1.1) IVSs: 1.8 cm LVIDs: 3.8 cm LVPWs: 1.8 cm LA Diam: 4.4 cm (2.7 - 3.8) RVIDd: 3.3 cm (< 3.3) LAESV Index (A-L): 32.54 ml/m Ao Diam: 3.5 cm (2.0 - 3.7) AV Cusp: 2.7 cm (1.5 - 2.6) EPSS: 0.3 cm MV E Derrick: 0.91 m/s MV DecT: 183 ms MV A Derrick: 0.62 m/s MV E/A Ratio: 1.47 RAP: 5.00 mmHg RVSP: 31.94 mmHg MV EF SLOPE: 165.08 mm/s (70 - 150) MV EXCURSION: 22.91 mm (> 18.000) FINDINGS -------- Sinus rhythm. This was a technically good study. The left ventricular size is normal. There is mild concentric left ventricular hypertrophy. Overa ll left ventricular systolic function is normal with, an EF between 60 - 65 %. The right ventricle is mildly enlarged. LA is midly dilated 29-33ml/m2. The right atrium is normal in size. Interatrial and interventricular septum intact. The aortic valve is trileaflet and appears structurally normal. There is mild aortic regurgitation. Mild mitral regurgitation is present. Mild tricuspid regurgitation present. Trace/mild (physiologic) pulmonic regurgitation. The aortic root size is normal. Normal inferior vena cava with normal inspiratory collapse consistent with estimated right atrial pre ssure of 5 mmHg. The inferior vena cava is mildly dilated. There is no pericardial effusion. CONCLUSIONS -------- 1. The left ventricular size is normal. 2. There is mild concentric left ventricular hypertrophy. 3. Overall left ventricular systolic function is normal with, an EF between 60 - 65 %. 4. The right ventricle is mildly enlarged. 5. LA is midly dilated 29-33ml/m2. 6. The aortic valve is trileaflet and appears structurally normal. 7. There is mild aortic regurgitation. 8. There is no pericardial effusion. [employer]: Sharon Jakc RDCS
--- NOTE | 2020-02-25 12:59 | CONS ---
CONSULTATION REASON FOR CONSULT: Renal failure. HISTORY OF PRESENT ILLNESS: Patient is a 29-year-old male who was admitted to the hospital on 02/22/2020 with complaints of fever, headache, some nausea, occasional vomiting. Patient is COVID-19 negative. He is currently being treated empirically for meningitis. The patient is being followed by ID. He is scheduled for lumbar puncture today. Patient denies any prior history of kidney diseases. He was noted to have a serum creatinine of 1.5 on initial admission. It did go down to 1.3 and now it is back up to 1.53. Patient has been maintained on IV fluids. He has good urine output. He did admit to use of Motrin 600 mg 3-4 times a day prior to admission for high fever. UA shows trace protein, trace blood. No significant cells were seen. Patient did get vancomycin, his level was 15.5 today. The patient was also maintained on acyclovir. Blood pressures have been low with systolic blood pressure in the 90s on 02/21. PAST MEDICAL HISTORY: Significant for basically none. PAST SURGICAL HISTORY: None. SOCIAL HISTORY: Negative for smoking, drug abuse or alcohol abuse. MEDICATIONS: Prior to admission include Levaquin, ibuprofen, Claritin, magnesium. ALLERGIES: None. REVIEW OF SYSTEMS: As per HPI. Other systems negative. PHYSICAL EXAMINATION: Patient is comfortable, awake, not in any acute distress. Alert, oriented x3. Blood pressure was 121/64, heart rate 62 per minute he is afebrile. Examination of the heart S1, S2. Examination of the lungs, bilateral breath sounds are heard. Abdomen is soft, nontender. Examination of lower extremities shows no evidence of edema. [employer] CLERK exam grossly intact. LABS: Show sodium of 136, potassium 3.9, chloride 103, CO2 is 26, BUN 12, serum creatinine 1.53, hemoglobin 10.8 g/dL, albumin 3.5. Vancomycin level 15.5. ASSESSMENT: 1. Acute kidney injury, ATN versus prerenal. The patient's creatinine had improved with IV hydration from 1.5-1.38, but back up to 1.5 now. He has had good urine output. He did take significant amount of NSAIDs prior to admission 600 mg about 4 times a day. Currently, patient is not on any nephrotoxic medications. The vancomycin that he is on did not have a significantly elevated level. I will obtain an ultrasound of his kidneys. His UA appears quite benign. We will continue to monitor the renal function for now. The acyclovir can also be associated with some tubular toxicity. However, patient needs it at this time and I will maintain him on IV fluids as well. 2. Fever and headache, being treated for meningitis. Scheduled for an LP today with 2 failed prior times. 3. Anemia, rule out iron deficiency. No active bleeding noted at this time. PLAN: 1. Check ultrasound of the kidneys. Check urine eosinophiles. Check iron profile. Continue IV fluids and monitor vancomycin levels closely. Continue to avoid NSAIDs. 2. Thank you for this consultation. Will continue to follow the patient with you during his hospitalization. MMODL / IJN: [id number] /
[2020-02-25 13:17] LABS: HSV I IgG Interp NEGATIVE (NEGATIVE); HSV II IgG Interp NEGATIVE (NEGATIVE)
[2020-02-25] MEDS: SUMAtriptan succinate 25 MG TAB PO PRN ×2 (13:39→21:18)
--- NOTE | 2020-02-25 13:40 | FL ---
EXAMINATION TYPE: FL guided lumbar puncture LP DATE OF EXAM: 02/25/2020 COMPARISON: NONE HISTORY: Headache, rule out meningitis TECHNIQUE: Lumbar puncture FINDINGS: Informed consent was obtained and all the patient's questions were answered. The standard s terile technique was utilized. Local anesthesia was obtained with 1% lidocaine and approximately 5 cc . The L2-3 level was localized fluoroscopically and a spinal needle was introduced into the thecal sa c and 4 test tubes with approximately 3 cc of spinal fluid each were submitted to cytology for furthe r evaluation. Patient tolerated the procedure well and left the department in stable condition. Fluor oscopic time was 38 seconds. IMPRESSION: Successful lumbar puncture.
--- NOTE | 2020-02-25 14:39 | US ---
EXAMINATION TYPE: US kidneys/renal and bladder DATE OF EXAM: 02/25/2020 COMPARISON: NONE CLINICAL HISTORY: RF. Abnormal renal lab values. EXAM MEASUREMENTS: Right Kidney: 13.0 x 6.1 x 5.0 cm Left Kidney: 12.8 x 5.8 x 5.5 cm Right Kidney: No hydronephrosis or masses seen Left Kidney: No hydronephrosis or masses seen Bladder: wnl There is no evidence for hydronephrosis at this point in time. No nephrolithiasis is seen. No jerri s are identified. The urinary bladder is anechoic. Incidental finding: splenule visualized IMPRESSION: No hydronephrosis is noted bilaterally.
[2020-02-25 14:50] LABS: HIV 2 AB Non-Reactive (Non-Reactive); HIV AB P24 Non-Reactive (Non-Reactive); HIV P24 AG Non-Reactive (Non-Reactive)
[2020-02-25 16:16] LABS: Glucose,CSF 53 mg/dL (40-70); Total Protein,CSF 46 mg/dL (12-60)
[2020-02-25 17:16] LABS: Appearance,CSF Clear; CSF Tube Number 3; Red Blood Cell,CSF 1 u/L (0-10)
[2020-02-25 17:22] LABS: Nucleated Cells, CSF 18 u/L (0-5)
[2020-02-25 17:26] LABS: Diff, Total Cells Cnt, CSF 100; Eosinophils,CSF 2 %; Mononuclear WBC,CSF 88 %; Polynuclear WBC,CSF 10 %
[2020-02-25 20:29] LABS: % Iron Saturation 14.4 (15.00-50.00)
[2020-02-25] MEDS: MELATONIN 3 MG TABLET PO SCH (21:18)
--- NOTE | 2020-02-25 22:44 | PN ---
PROGRESS NOTE DATE OF SERVICE: 02/25/2020 REASON FOR FOLLOWUP: Fever, meningitis; possibly viral. INTERVAL HISTORY: The patient is currently afebrile. The patient has been feeling better, breathing comfortably. The patient's headache has improved. Denies having any chest pain or shortness of breath or cough. No nausea, vomiting or diarrhea. PHYSICAL EXAMINATION: Blood pressure 159/93 with a pulse of 58, temperature 98.4. He is 99% on room air. General description is a young male up in the room in no distress. RESPIRATORY SYSTEM: Unlabored breathing with decreased breath sounds at the base. No wheeze. HEART: S1, S2. Regular rate and rhythm. ABDOMEN: Soft. No tenderness. LABS: Hemoglobin 10.8, white count 5.8. BUN of 12, creatinine 1.53. The patient did have a CSF examination today: normal protein, normal glucose; however, did have elevated white count of 18, 88% mononuclear, 12% polynuclear. DIAGNOSTIC IMPRESSION AND PLAN: Patient admitted to hospital with a fever and headache with concern for meningitis. Unfortunately, the patient's LP has been delayed for almost 96 hours. That will be affecting the results of the LP. However, do not expect the normalization of the protein and the glucose. Since cell count is not too high, we will discontinue the acyclovir and the vancomycin, as he has borderline kidney function. Continue with the Rocephin while waiting for his condition to stabilize and continue with supportive care. MMODL / IJN: [id number] /
[2020-02-26] MEDS: SODIUM CHLORIDE 0.9% 1,000 ML IV SCH ×2 (00:42→15:43)
[2020-02-26 08:12] LABS: Basophils % (A) 0 %; Eosinophils # (A) 0.1 k/uL (0-0.7); Eosinophils % (A) 1 %; HCT 32.6 % (39.0-53.0); HGB 10.6 gm/dL (13.0-17.5); Lymphocytes # (A) 0.9 k/uL (1.0-4.8); Lymphocytes % (A) 15 %; MCH 27.7 pg (25.0-35.0); MCHC 32.6 g/dL (31.0-37.0); Monocytes # (A) 0.4 k/uL (0-1.0); Monocytes % (A) 6 %; Neutrophils # (A) 4.9 k/uL (1.3-7.7); Neutrophils % (A) 77 %; Platelet Count 162 k/uL (150-450); RBC 3.84 m/uL (4.30-5.90); RDW 12.4 % (11.5-15.5); WBC 6.4 k/uL (3.8-10.6)
[2020-02-26 08:40] LABS: C Reactive Protein 52.9 mg/L (<10.0); Calcium 8.4 mg/dL (8.4-10.2); Potassium 3.9 mmol/L (3.5-5.1)
[2020-02-26] MEDS: HEPARIN SODIUM,PORCINE 5,000 UNIT/ML 1 ML VIAL SQ SCH ×2 (09:21→17:56)
[2020-02-26] MEDS: SUMAtriptan succinate 25 MG TAB PO PRN ×2 (09:21→21:54)
--- NOTE | 2020-02-26 13:50 | P.PN ---
Subjective Progress Note Date: 02/26/20 Patient still complaining of headache today. It is better compared to yesterday. He is also complaining of photophobia. Objective - Vital Signs Vital signs: Vital Signs Temp 99.8 F H 02/26/20 08:04 Pulse 70 02/26/20 08:04 Resp 16 02/26/20 08:04 BP 141/81 02/26/20 11:24 Pulse Ox 96 02/26/20 08:04 Intake & Output 02/25/20 02/26/20 02/26/20 18:59 06:59 18:59 Intake Total 470 1400 120 Balance 470 1400 120 Intake: Intake, IV Titration 1400 Amount Acyclovir Sodium 1,100 mg 250 In Sodium Chloride 0.9% 250 ml @ 270 mls/hr IVPB Q8H [facility] Rx#:[id number] Sodium Chloride 0.9% 1, 600 000 ml @ 75 mls/hr IV . [id number] [facility] Rx#:[id number] Vancomycin 2,000 mg In 500 Sodium Chloride 0.9% 500 ml 500 ml @ 167 mls/hr IVPB Q12H [facility] Rx#: [id number] cefTRIAXone 2 gm In 50 Sodium Chloride 0.9% 50 ml @ 100 mls/hr IVPB Q12HR [facility] Rx#:[id number] Oral 470 120 Other: Voiding Method Toilet # Voids 2 2 - Exam General: The patient is awake and alert, in no distress Eye: there is normal conjunctiva bilaterally. Neck: The neck is supple, there is no JVD. Cardiovascular: Normal S1-S2, no S3-S4, no murmurs. Respiratory: Lungs clear to auscultation bilaterally Gastrointestinal: Abdomen is soft, nontender Musculoskeletal: There is no pedal edema. Neurological:. Speech is normal. Skin: Skin is warm and dry - Labs CBC & Chem 7: 02/26/20 07:23 02/26/20 07:23 Labs: Abnormal Lab Results - Last 24 Hours (Table) 02/25/20 02/25/20 02/26/20 Range/Units 07:43 14:10 07:23 RBC 3.84 L (4.30-5.90) m/uL Hgb 10.6 L (13.0-17.5) gm/dL Hct 32.6 L (39.0-53.0) % Lymphocytes # 0.9 L (1.0-4.8) k/uL Sodium (137-145) mmol/L Creatinine (0.66-1.25) mg/dL Iron 35 L (65-175) ug/dL % Saturation 14.40 L (15.00-50.00) C-Reactive Protein (<10.0) mg/L CSF Tot Nucleated Cells 18 H* (0-5) u/L 02/26/20 Range/Units 07:23 RBC (4.30-5.90) m/uL Hgb (13.0-17.5) gm/dL Hct (39.0-53.0) % Lymphocytes # (1.0-4.8) k/uL Sodium 136 L (137-145) mmol/L Creatinine 1.65 H (0.66-1.25) mg/dL Iron (65-175) ug/dL % Saturation (15.00-50.00) C-Reactive Protein 52.9 H (<10.0) mg/L CSF Tot Nucleated Cells (0-5) u/L Microbiology - Last 24 Hours (Table) 02/25/20 13:36 CSF Gram Stain - Preliminary Cerebral Spinal Fluid CSF Culture - Preliminary 02/22/20 14:41 Blood Culture - Preliminary Blood No Growth after 72 hours Assessment and Plan Assessment: This is a 29-year-old male with no significant past medical history who present ed to the hospital with 1 week history of persistent headache and fever on presentation. Patient visited the local urgent care week prior to his presentation to the ER and a Covid 19 test was negative. He was evaluated in our ER and admitted to the hospital for further management of his medical pr oblems noted below. -acute fever, with headache, with suspected meningitis -Persistent headache, exact etiology unclear. I will consult neurology for further evaluation -COVID 19 infection ruled out -Acute kidney injury: Thought to be attributed to sepsis with possible ATN and use of ibuprofen prior to presentation. Creatinine not improving after aggressive IV fluid hydration. Nephrology consulted, appreciate recommendations. Ultrasound with no acute findings or hydronephrosis. -Troponin elevation on presentation, most likely non-thrombotic troponin leak. Repeat troponin negative. Echocardiogram showed preserved EF and no evidence of pericardial effusion failed two attempts of LP in the ED, patient started on empiric ABx coverage with vancomycin, ceftriaxone, and acyclovir. He was done on Saturday 02/24 after patient is been on antibiotic for 48 hours Vancomycin and acyclovir discontinue giving kidney function ID consultation appreciated Blood culture negative to date Awaiting neurology consult symptomatic control IVF hydration with normal saline at 75 mL per hour DVT prophylaxis with subcu heparin Repeat lab work in the morning
--- NOTE | 2020-02-26 17:01 | PN ---
PROGRESS NOTE DATE OF SERVICE: 02/26/2020 REASON FOR FOLLOWUP: Headache and possible meningitis. INTERVAL HISTORY: Patient did have a low-grade fever of 99.8 this morning. The patient is afebrile since then. Did mention did have some headache mostly on the left side this morning, improved with Imitrex. No nausea, no vomiting. Denies having any chest pain, no shortness of breath, no cough. No abdominal pain, no diarrhea. PHYSICAL EXAMINATION: Blood pressure 141/80 with a pulse of 70, temperature 98.8. He is 96% on room air. General description is a middle-aged male, lying in bed in no distress. RESPIRATORY SYSTEM: Unlabored breathing, clear to auscultation anteriorly. HEART: S1, S2. Regular rate and rhythm: ABDOMEN: Soft, no tenderness. LABS: Hemoglobin is 10.6, white count of 6.4, BUN of 14, creatinine 0.65. DIAGNOSTIC IMPRESSION AND PLAN: Patient with fever and headache with concern for meningitis, unfortunately received [QAMARKER] and that has kind of affected the results with a normal glucose and protein; however, white count is elevated and that is concerning. The patient will benefit from neurology evaluation and MRI to rule out any other abnormality. Continue with Rocephin at this point and monitor clinical course closely. Will discuss in detail with the admitting physician. JUAN / ADITYAN: [id number] /
--- NOTE | 2020-02-26 17:25 | PN ---
PROGRESS NOTE Patient is seen for followup for acute kidney injury. He did have the LP yesterday and total nucleated cells was 18. He continues to have good urine output. Patient is maintained on IV fluids. His creatinine is slightly higher at 1.65 today from 1.53. Blood pressure has not been low. Patient continues to complain of headache. PHYSICAL EXAMINATION: On examination today, blood pressure was 141/81, heart rate of 70 per minute, he is afebrile. Examination shows no evidence of edema bilateral lower extremities. Abdomen is soft, nontender. Patient appears euvolemic. BREASTER exam is grossly intact. LABS: Show sodium of 136, potassium 3.9, chloride 102, CO2 is 26, BUN 14, creatinine 1.65, hemoglobin 10.6 g/dL. ASSESSMENT: 1. Acute kidney injury, most likely ATN, also a component of tubular toxicity from acyclovir. Currently, the acyclovir is discontinued. Patient remains on IV fluids. I will increase the rate to 100 mL an hour. Urine eosinophiles were 0 and the UA is fairly benign with no evidence of pyuria. Patient did receive vancomycin as well. Currently he is off it. No evidence of obstruction on ultrasound. 2. Fever and headaches with high suspicion for meningitis, being followed by Infectious disease, status post LP with elevated nucleated cells, although not significantly elevated. Patient was already on treatment prior to the LP. PLAN: Increase IV fluids to 100 mL an hour. Continue off acyclovir and vancomycin. Repeat labs in a.m. MMODL / IJN: [id number] /
[2020-02-26] MEDS: FERROUS SULFATE 325 MG TAB PO SCH (17:56)
[2020-02-26] MEDS: MELATONIN 3 MG TABLET PO SCH (21:54)
[2020-02-27] MEDS: HEPARIN SODIUM,PORCINE 5,000 UNIT/ML 1 ML VIAL SQ SCH ×4 (00:30→23:53)
[2020-02-27] MEDS: SODIUM CHLORIDE 0.9% 1,000 ML IV SCH ×3 (02:24→20:53)
[2020-02-27] MEDS: BUTALB/APAP/CAFF 50-325-40MG TAB PO PRN (02:40)
[2020-02-27] MEDS: FERROUS SULFATE 325 MG TAB PO SCH ×2 (08:30→17:13)
[2020-02-27] MEDS: SUMAtriptan succinate 25 MG TAB PO PRN ×2 (08:30→18:56)
[2020-02-27 09:09] LABS: Basophils % (A) 0 %; Eosinophils # (A) 0.1 k/uL (0-0.7); Eosinophils % (A) 1 %; HGB 11.1 gm/dL (13.0-17.5); Lymphocytes # (A) 1.3 k/uL (1.0-4.8); Lymphocytes % (A) 20 %; MCH 28.2 pg (25.0-35.0); MCHC 32.6 g/dL (31.0-37.0); MCV 86.3 fL (80.0-100.0); Mean Platelet Volume 7.9; Monocytes # (A) 0.3 k/uL (0-1.0); Monocytes % (A) 4 %; Neutrophils # (A) 4.8 k/uL (1.3-7.7); Neutrophils % (A) 73 %; Platelet Count 189 k/uL (150-450); RBC 3.94 m/uL (4.30-5.90); RDW 12.5 % (11.5-15.5); WBC 6.6 k/uL (3.8-10.6)
[2020-02-27 09:25] LABS: Calcium 8.5 mg/dL (8.4-10.2)
--- NOTE | 2020-02-27 11:11 | P.PN ---
Subjective Progress Note Date: 02/27/20 Patient continues to report headache, photophobia, now some shoulder stiffness on the right side. Patient reports frequent urination with fluids running at 100 mL per hour. Objective - Vital Signs Vital signs: Vital Signs Temp 97.8 F 02/27/20 07:17 Pulse 64 02/27/20 07:17 Resp 17 02/27/20 07:17 BP 126/78 02/27/20 07:17 Pulse Ox 96 02/27/20 07:17 Intake & Output 02/26/20 02/27/20 02/27/20 18:59 06:59 18:59 Intake Total 1680 200 400 Balance 1680 200 400 Intake: Oral 1680 200 400 Other: Voiding Method Toilet # Voids 3 1 # Bowel Movements 1 - Exam Gen: awake, alert HEENT: normocephalic, atraumatic, good hearing acuity, moist mucous membranes Resp: CTAB, good air exchange, no accessory muscle use, no wheezes, crackles, rhonchi CVS: good distal perfusion x 4, RRR, no murmurs, clicks, gallops GI: soft, NTTP, ND : no SPT, no CVAT, mitchell catheter [IS/NOT] present MSK: no pitting edema, no clubbing Neuro: non-focal, no sensory deficits, appropriate tone Psych: cooperative, euthymic mood - Labs CBC & Chem 7: 02/27/20 08:05 02/27/20 08:05 Labs: Abnormal Lab Results - Last 24 Hours (Table) 02/27/20 02/27/20 Range/Units 08:05 08:05 RBC 3.94 L (4.30-5.90) m/uL Hgb 11.1 L (13.0-17.5) gm/dL Hct 34.0 L (39.0-53.0) % Creatinine 1.74 H (0.66-1.25) mg/dL Glucose 133 H (74-99) mg/dL Microbiology - Last 24 Hours (Table) 02/25/20 13:36 CSF Gram Stain - Preliminary Cerebral Spinal Fluid CSF Culture - Preliminary 02/22/20 14:41 Blood Culture - Preliminary Blood No Growth after 96 hours - Imaging and Cardiology MRI - head: pending
[2020-02-27 13:33] LABS: Appearance,Urine Clear (Clear); Bilirubin,Urine Negative (Negative); Blood,Urine Negative (Negative); Color,Urine Light Yellow; Glucose,Urine (UA) Negative (Negative); Ketones,Urine Negative (Negative); Leukocyte Esterase,Urine Negative (Negative); Nitrite,Urine Negative (Negative); Protein,Urine Negative (Negative); Specific Gravity,Urine 1.012 (1.001-1.035); Urobilinogen,Urine <2.0 mg/dL (<2.0)
--- NOTE | 2020-02-27 15:18 | PN ---
PROGRESS NOTE Patient is seen for followup for acute kidney injury. Patient was admitted to the hospital with fever and headaches and empirically treated for meningitis. He had 2 unsuccessful attempts at LP initially; however, it was finally done 3 days later. It showed elevated white count. The patient continues to have headaches. He was maintained on acyclovir and vancomycin initially, which are now discontinued. Serum creatinine has been at about 1.5 mg/dL since admission and slowly increasing to 1.6 and 1.7 today. In the meantime, patient has been maintained on IV fluids. His UA was quite benign with trace protein and trace blood. No significant cells were seen. Urine eosinophiles were negative as well. The ultrasound does not show any evidence of obstruction. Patient has been voiding well. He is not hypotensive. No nephrotoxic agents currently on board. The IV is currently off, as it was bothering the patient. He will be resumed on IV fluids at 100 mL/hour. I will reorder another urinalysis in case there is any change in his urine. I expect his renal function to improve in the next few days, particularly given that we have discontinued acyclovir and the vancomycin. The patient had also taken Motrin prior to admission. PHYSICAL EXAMINATION: On examination today, patient is resting. He is complaining of headache. Blood pressure is 126/78, heart rate 64 per minute. He is afebrile. EXAMINATION OF THE HEART: S1 and S2. EXAMINATION OF LUNGS: Bilateral breath sounds are heard. ABDOMEN: Soft, non-tender. Examination of lower extremities shows no significant edema. [employer] TECH[employer]OLOGY TEACHER exam is grossly intact. LABS: Labs show sodium 138, potassium 4.0, chloride 102. CO2 is 29, BUN 15, creatinine 1.74, hemoglobin 11.1 g/dL. ASSESSMENT: 1. Acute kidney injury, most likely acute tubular necrosis. Serum creatinine is slowly worsening. Patient remains on IV fluids. There is no evidence of obstruction. Urine eosinophiles were negative. UA was not particularly active. There was probably some tubular toxicity from the acyclovir and nephrotoxicity from vancomycin. The patient was on NSAIDs prior to admission. These are all discontinued. I will repeat another urinalysis and patient will be maintained on IV hydration. Expect his kidney function to improve in the next 24 to 48 hours since there are no nephrotoxic medications on board. 2. Fever and headaches with previous history of migraines, status post treatment for meningitis, being followed by Infectious Disease. Neurology has been consulted. PLAN: Continue IV hydration. Repeat urinalysis. Continue to avoid nephrotoxic medications and repeat labs in a.m. MMGURWINDERL / IJN: [id number] /
[2020-02-27 15:53] LABS: Creatinine,Urine Random 100.4 mg/dL
--- NOTE | 2020-02-27 19:58 | P.CNNES ---
History of Present Illness Consult date: 02/27/20 Requesting physician: Shu Dunbar Reason for Consult: persistent headache History of Present Illness: This is a 29-year-old right-handed gentleman with no previous medical history of that that presented to the emergency department on 02/22/2024 headaches, fever, ear fullness since 02/13/2020 patient stated that he came back from [place] visiting his mom on 02/10/2020 he was there for 2 days and only interactive the people that he knew and nobody was sick. Then on 02/13/2020 he started having headache mostly holocephalic, or TB in the different parts of the head frontal temporal occipital and the headache is constant throbbing it would sometimes radiate to the neck. The headache was 10 out of 10. He did have photophobia photophobia. He didn't have any nausea vomiting. He did have fevers that was waxing and waning but mostly it was at night. His temperature got as high as 103.4. He was having chills night sweats and feeling cold. He also felt his both eyes were slightly red He had the bilateral ear pressure and described it as the ears was about to pop out, the left more than the right. He denied any again sick contacts. Denied any other neurological problems such as the numbness tingling visual disturbance any weakness and any slurring of the speech. Denied any neck stiffness. Denies of any rash. He initially came to [place] on [facility] ED on [phone] he was tested for coated and he was told the he'll be reported of the results discharged home and he was told to take ibuprofen that and to alternate with Tylenol. He was called on the couple days later that his COVID test was negative. He was seen by a physician virtually and initially was started on Bactrim he received 1 or 2 doses then was switched to Levaquin (received 3 doses and the) and no much benefit with eitherThen he came back to the hospital on 02/22/2020 since the headache has not improved and was continued to have fevers, night sweats chills feeling cold. Currently his headache is 2-3 out of 10 he feels is bearable. He he said that his left eye is red more than it was before. Denies upper respiratory tract infection, change in taste or smell. denies any abdominal pain, vomiting or diarrhea. Denies myalgia. Denies any neck stiffness or rigidity. No other symptoms. Denies nausea vomiting shortness of breath or myalgia. During the patient's hospitalization he was receiving ceftriaxone and vancomycin and acyclovir initially they attempted to do a lumbar puncture in the emergency department but there are on sexual so was done on 02/25/2020 the vancomycin and acyclovir was discontinued since it was felt that his CSF was normal according to the patient. Patient presented with vitals initially of 99.1 Fahrenheit orally, blood pressure of 127/74, pulse ox of 100 at room air, respiratory of 20 and a heart rate of 71. patient did spike a fever on 02/22/2020 at around 1933 of 102.4 Fahrenheit Patient hospital workup consisted of: CT of the head on 02/22/2020 which was reported as normal. CT of the auditory canal was also performed which was reported as normal internal auditory canals. No radiographic etiology to account for mastoid tenderness or ear pain chest x-ray was done and was reported as no acute cardiopulmonary process. Lumbar puncture was done on 02/25/2020 and it appears clear, colorless, 1 red blood cell, there is 18 nucleated cells, polynuclear white blood cell percentage is 10% mononuclear white blood cell is 88%total protein is 46, glucose is 53. patient had initially UA on 02/22/2020 which was yellow, clear, no leukocyte Estrace and nitrates were negative. patient had a repeated UA and again was unremarkable. Patient was tested for the rocha virus PCR and was negative HSV 1 and to DNA PCR were negative. HIV antibody was nonreactive. HIV P 24 antibody was nonreactive. HIV-2 antibody was nonreactive HIV P 24 antigen was nonreactive. his creatinine has been ranging in the between 1.38 to 1.74. His when necessary has been normal during his stay AST of 28 ALTs of 22. the pro calcitonin was 0.20 which was high PT of 10.9, INR of 1.1 and d-dimer is 0.72. And that was from 02/22/2020. patient has been getting Tylenol 650 mg every 4 hours when necessary he also has Fioricets and Imitrex 25 mg every 8 hours as needed. Last Imitrex he received was a 30 in the morning today. he received Fioricet today at 240.He does not feel any better. he's also has Zofran 4 mg every hours as needed. He is also on ceftriaxone 2 g every 12 hours and it looks like he was started on on 02/22/2020. Review of Systems Review of system: The 12 point system was reviewed and apparent positive and negative per HPI. Past Medical History Past Medical History: No Reported History History of Any Multi-Drug Resistant Organisms: None Reported Past Surgical History: No Surgical Hx Reported Past Anesthesia/Blood Transfusion Reactions: No Reported Reaction Past Psychological History: No Psychological Hx Reported Smoking Status: Never smoker Past Alcohol Use History: Occasional Past Drug Use History: None Reported Medications and Allergies Home Medications Medication Instructions Recorded Confirmed Type Levofloxacin [Levaquin] 750 mg PO DAILY 3 Days #3 tab 02/20/20 02/22/20 Rx Acetaminophen Tab [Tylenol Tab] 1,000 mg PO Q8H PRN 02/22/20 02/22/20 History Ibuprofen 600 mg PO Q8H PRN 02/22/20 02/22/20 History Loratadine-Pseudoeph 5-120 mg 1 tab PO Q12HR PRN 02/22/20 02/22/20 History [Claritin-D 12 Hour] Magnesium Oxide [Magox 400] 400 mg PO DAILY 02/22/20 02/22/20 History Allergies Allergy/AdvReac Type Severity Reaction Status Date / Time No Known Allergies Allergy Verified 02/22/20 14:35 Physical Examination - Vital Signs Vital Signs: Vital Signs Temp Pulse Resp BP BP Pulse Ox 02/27/20 07:17 97.8 F 64 17 126/78 96 02/27/20 03:08 98.5 F 71 17 148/71 98 02/26/20 19:49 99 F 63 16 163/74 99 02/26/20 16:10 15 02/26/20 14:46 98.0 F 57 L 15 127/80 96 Intake and Output 02/26/20 02/27/20 02/27/20 22:59 06:59 14:59 Intake Total 1520 400 Balance 1520 400 Intake: Oral 1520 400 Other: Voiding Method Toilet # Voids 1 1 3 # Bowel Movements 1 GENERAL: The patient is lying in bed and is not in acute distress. CHEST: The heart rate is regular rate rhythm. No murmurs to auscultation. LUNG: Clear to auscultation bilaterally no wheezing noted throughout. Not labored breathing. ABDOMEN/GI: Bowel sounds present in all 4 quadrants. No tenderness to palpation throughout. NEUROLOGICAL: Higher mental function: The patient is awake, alert, oriented to self, place and time. Patient is following simpile and complex commands. No aphasia and no neglect. Cranial nerves: The pupils are red in coloration over the left eye. The pupils are round, equal, 3mm bilaterally and reactive to light and accommodation. Visual scherer are full to confrontation throughout. Extraocular movement is intact no nystagmus is noted. Facial sensation is normal to touch throughout. The facial strength is normal throughout. Hearing is normal bilaterally to hand rub. Tongue is midline and moved [id number] without any difficulty. No dysarthria is noted. Shoulder shrug is normal bilaterally. Motor: Gait is normal with normal arm swings. The strength is 5 over 5 throughout. Normal tone and bulk. Cerebellum: Normal finger to nose heel to larsen bilaterally. Sensation: Sensation is normal to touch throughout. Reflexes (right/left): 2+ throughout. Plantars are downgoing bilaterally. Results - Laboratory Findings CBC and BMP: 02/27/20 08:05 02/27/20 08:05 Abnormal Lab Findings: Abnormal Labs 02/22/20 02/22/20 02/22/20 14:41 14:41 14:41 RBC Hgb 12.4 L Hct 37.3 L Lymphocytes # 0.8 L D-Dimer Sodium Creatinine 1.51 H Glucose Plasma Lactic Acid Markel Calcium Iron % Saturation Ferritin Troponin I C-Reactive Protein Total Protein Procalcitonin Urine Protein Trace H Urine Blood Trace H Urine Bacteria Rare H Urine Mucus Occasional H CSF Tot Nucleated Cells 02/22/20 02/22/20 02/22/20 14:41 20:40 20:40 RBC Hgb Hct Lymphocytes # D-Dimer 0.72 H Sodium Creatinine Glucose Plasma Lactic Acid Markel 0.5 L Calcium Iron % Saturation Ferritin 338.7 H Troponin I C-Reactive Protein 65.7 H Total Protein Procalcitonin Urine Protein Urine Blood Urine Bacteria Urine Mucus CSF Tot Nucleated Cells 02/22/20 02/22/20 02/23/20 20:40 20:40 07:02 RBC 3.88 L Hgb 10.9 L Hct 33.3 L Lymphocytes # 0.8 L D-Dimer Sodium Creatinine Glucose Plasma Lactic Acid Markel Calcium Iron % Saturation Ferritin Troponin I 0.045 H* C-Reactive Protein Total Protein Procalcitonin 0.20 H Urine Protein Urine Blood Urine Bacteria Urine Mucus CSF Tot Nucleated Cells 02/23/20 02/24/20 02/24/20 07:02 06:59 06:59 RBC 3.79 L Hgb 10.7 L Hct 32.1 L Lymphocytes # 0.8 L D-Dimer Sodium 136 L Creatinine 1.43 H 1.38 H Glucose 100 H Plasma Lactic Acid Markel Calcium 7.9 L 8.2 L Iron % Saturation Ferritin Troponin I C-Reactive Protein Total Protein 6.2 L Procalcitonin Urine Protein Urine Blood Urine Bacteria Urine Mucus CSF Tot Nucleated Cells 02/25/20 02/25/20 02/25/20 07:43 07:43 07:43 RBC 3.78 L Hgb 10.8 L Hct 32.0 L Lymphocytes # 0.9 L D-Dimer Sodium 136 L Creatinine 1.53 H Glucose Plasma Lactic Acid Markel Calcium 7.9 L Iron 35 L % Saturation 14.40 L Ferritin Troponin I C-Reactive Protein Total Protein Procalcitonin Urine Protein Urine Blood Urine Bacteria Urine Mucus CSF Tot Nucleated Cells 02/25/20 02/26/20 02/26/20 14:10 07:23 07:23 RBC 3.84 L Hgb 10.6 L Hct 32.6 L Lymphocytes # 0.9 L D-Dimer Sodium 136 L Creatinine 1.65 H Glucose Plasma Lactic Acid Markel Calcium Iron % Saturation Ferritin Troponin I C-Reactive Protein 52.9 H Total Protein Procalcitonin Urine Protein Urine Blood Urine Bacteria Urine Mucus CSF Tot Nucleated Cells 18 H* 02/27/20 02/27/20 08:05 08:05 RBC 3.94 L Hgb 11.1 L Hct 34.0 L Lymphocytes # D-Dimer Sodium Creatinine 1.74 H Glucose 133 H Plasma Lactic Acid Markel Calcium Iron % Saturation Ferritin Troponin I C-Reactive Protein Total Protein Procalcitonin Urine Protein Urine Blood Urine Bacteria Urine Mucus CSF Tot Nucleated Cells Assessment and Plan Assessment: This is a 29-year-old gentleman with no previous medical history that has been having fevers predominantly at night, constant headache mostly holocephalic but can be also focal in the frontal temporal occipital associate with photophobia and phonophobia, ear fullness that has been going on since 02/13/2020. He also has night sweats, and chills and feeling cold associate with that. There is no sick contacts. 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 Consider placing him on broad coverage antibiotic with Acyclovir. What goes against viral is the fever was high which is atypical. We can go ahead with getting an MRI of the brain without contrast. Will avoid using contrast since the patient has an acute kidney injury. Currently the patient is on ceftriaxone. Consider placing him on broad spectrum antibiotic with Acylovir. Consider repeating Lumbar puncture. I will discuss the case with the infection disease team The plan was discussed with patient and his mother. Thanks for the consult. Mando Pryor MD Neuro-hospitalist Time with Patient: Greater than 30
[2020-02-27] MEDS: AMPICILLIN 2,000 MG in SODIUM CHLORIDE 0.9% 100 ML IVPB SCH ×2 (20:52→23:53)
[2020-02-27] MEDS: MELATONIN 3 MG TABLET PO SCH (21:51)
--- NOTE | 2020-02-27 22:00 | PN ---
PROGRESS NOTE DATE OF SERVICE: 02/27/2020 REASON FOR FOLLOWUP: Possible meningitis. INTERVAL HISTORY: Patient is currently afebrile. The patient is complaining of headache. There seemed to be some relief with pain medication. However, not completely resolved. The patient denies any nausea, no vomiting, no diarrhea. No chest pain. No shortness of breath or cough. PHYSICAL EXAMINATION: Blood pressure 143/80 with a pulse of 71, temperature of 98.8. He is 97% on room air. General description: The patient is a middle-aged male lying in bed in no distress. Respiratory system: Unlabored breathing. Clear to auscultation anteriorly. Heart S1, S2. Regular rate and rhythm. Abdomen soft, no tenderness. LABS: Hemoglobin 11.1, white count 6.6, BUN of 15, creatinine 1.74. UA has been negative. DIAGNOSTIC IMPRESSION AND PLAN: Patient with fever and headache with concern for meningitis. Unfortunately, the patient LP was done very late that was ordered on admission and was attempted on the ER. Patient did not have any elevated protein or glucose. White count slightly elevated at 18. with current antibiotic regimen, though patient does not have any GI symptoms or age due to be suspicious for it. However, in view of persistent headache, we will go ahead and add Ampicillin. Continue with Rocephin 2 grams q.12h. MRI will be ordered as well to make sure no evidence of any abscess or structure abnormality. His case was discussed in detail with the neurologist. MMGURWINDERL / FARRAH: [id number] / MTDHarinder
[2020-02-28] MEDS: ONDANSETRON 4 MG/2 ML VIAL IVP PRN (04:08)
[2020-02-28] MEDS: SUMAtriptan succinate 25 MG TAB PO PRN ×2 (04:09→14:12)
[2020-02-28] MEDS: AMPICILLIN 2,000 MG in SODIUM CHLORIDE 0.9% 100 ML IVPB SCH ×6 (04:09→22:54)
[2020-02-28] MEDS ORDERED: GABAPENTIN 100 MG CAP PO PRN (07:10)
[2020-02-28] MEDS: FERROUS SULFATE 325 MG TAB PO SCH ×2 (07:29→17:49)
[2020-02-28] MEDS: HEPARIN SODIUM,PORCINE 5,000 UNIT/ML 1 ML VIAL SQ SCH ×3 (07:29→22:54)
[2020-02-28] MEDS: SODIUM CHLORIDE 0.9% 1,000 ML IV SCH ×2 (07:34→17:52)
[2020-02-28 07:55] LABS: Basophils # (A) 0.1 k/uL (0-0.2); Basophils % (A) 1 %; Eosinophils # (A) 0.1 k/uL (0-0.7); Eosinophils % (A) 1 %; HCT 36.6 % (39.0-53.0); HGB 11.7 gm/dL (13.0-17.5); Lymphocytes # (A) 1.1 k/uL (1.0-4.8); Lymphocytes % (A) 15 %; MCH 27.7 pg (25.0-35.0); MCHC 31.9 g/dL (31.0-37.0); MCV 86.7 fL (80.0-100.0); Mean Platelet Volume 7.8; Monocytes # (A) 0.3 k/uL (0-1.0); Monocytes % (A) 4 %; Neutrophils # (A) 5.7 k/uL (1.3-7.7); Neutrophils % (A) 78 %; Platelet Count 222 k/uL (150-450); RBC 4.22 m/uL (4.30-5.90); RDW 12.7 % (11.5-15.5); WBC 7.3 k/uL (3.8-10.6)
[2020-02-28 08:03] LABS: Calcium 8.6 mg/dL (8.4-10.2); Potassium 4.4 mmol/L (3.5-5.1)
--- NOTE | 2020-02-28 11:27 | CDI ---
Severe Sepsis, Present on Admission Documentation Clarification Form Date: 02/28/2020 11:13:06 AM From: Eve BarnesDelunaCAITIE, CCDS Admit Date: 02/22/2020 07:40:00 PM Patient Name: Darion Garcia Visit Number: [id number] Discharge Date: ATTENTION: The Clinical Documentation Specialists (CDI) and [facility] Coding Staff appreciate your assistance in clarifying documentation. Please respond to the clarification below the line at the bottom and electronically sign. The CDI & [facility] Coding staff will review the response and follow-up if needed. Please note: Queries are made part of the Legal Health Record. If you have any questions, please contact the author of this message via ITS. Dr. Kisha Betancourt: Sepsis is documented in the 02/25 Attending Progress Note: " Acute kidney injury: thought to be attributed to sepsis with possible ATN and use of ibuprofen prior to presentation." History/Risk Factors: No reported history. Clinical Indicators: Patient presented to the ED on 02/21 with fever x8 days, chills, recent travel via air to [place] to visit family, contact with close family only & no sick contacts. Severe headaches radiating to bilateral neck & back of his head & neck with no stiffness & photophobia. Being worked up for possible meningitis. Failed treatment with multiple antibiotics. COVID test x2: Negative. VS 02/21: T 99.1 - 102.4^, P 71, R 20, BP 127/74 - 97/68, PO 100 RA LAB 02/21: WBC (5.2), Lymphocytes 0.8*, Lactic Acid 0.5*, CRP 65.7^, Procalcitonin 0.20^. Procedure: LP attempted twice & failed, successful LP on 02/24: possible meningitis. Treatment 02/21: IV fluid 1,000 mls @ 999/hr, IV Ms, IV Reglan, IV Zofran, IV Rocephin, IV Acyclovir, IV Vancomycin. 02/26: IV Ampicillin. MRI head pending. Consults: Nephrology: RACHEL ATN vs prerenal. Infectious Disease: Febrile, Suspected COVID 19 virus infection. 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
--- NOTE | 2020-02-28 12:41 | PN ---
PROGRESS NOTE Patient is seen for followup for acute kidney injury. He was admitted with fever and headache and has been treated for meningitis. Patient had been on NSAIDs. He was also on valacyclovir and vancomycin. Serum creatinine had increased to about 1.5 and peaked at 1.7 today. It is down to 1.6 mg/dL. Repeat UA was done yesterday which was completely benign. Patient continues to have good urine output. He is maintained on IV fluids. PHYSICAL EXAMINATION: On examination, blood pressure was 147/76, heart rate 63 per minute, he is afebrile. Examination shows patient is euvolemic. No evidence of edema, bilateral lower extremities. LABS: Show sodium 140, potassium 4.0, chloride 104, BUN 14, creatinine 1.6, hemoglobin 11.7 g/dL. ASSESSMENT: 1. Acute kidney injury, mostly ATN and tubular toxicity from acyclovir, some degree of nephrotoxicity from vancomycin as well as NSAIDs, currently improving. May continue with the IV fluids for now. UA is completely benign and there is no evidence of obstruction on the ultrasound. 2. Fever and headaches mostly from meningitis, status post treatment, schedule for MRI today. 3. History of migraines, maintained on treatment. PLAN: Continue IV fluids repeat labs in a.m. avoid nephrotoxic agents avoid, avoid gadolinium with MRI. MMODL / IJN: [id number] /
--- NOTE | 2020-02-28 13:35 | MR ---
EXAMINATION TYPE: MR brain wo con DATE OF EXAM: 02/28/2020 COMPARISON: CT brain 02/22/2020 HISTORY: New onset persistent headache CONTRAST: Performed utilizing 0 mL intravenous Gadavist gadolinium contrast. TECHNIQUE: Multiplanar, multiecho imaging on a 3.0 Veronique magnet is performed through the brain. Stud y is performed within 24 hours of arrival to the hospital. The craniovertebral junction is normal. The pituitary is somewhat domed which is greater than expect ed for age and sex matched comparison. This is approximately 7.1 mm x 10.4 mm in the sagittal plane. Consider dedicated MRI of pituitary. Microadenoma is not excluded. No contact with the optic chiasm i s evident coronal plane images. Pituitary stalk. Diffusion-weighted imaging is performed. No abnormal hyperintensity is present to suggest an acute i ntracranial infarct or acute ischemic change. Signal within the brain appears normal. There is preservation of rich-white matter differentiation. V ascular flow voids appear normal some fullness of the tip of the basilar artery is present in the axi al plane. This area appears more normal on the coronal plane images. Precautionary MRA brain could be performed. Ventricles and sulci are appropriate for the patient age. IMPRESSIONS: 1. No acute intracranial changes identified. 2. There is some fullness of the pituitary, slightly greater than expected for male of this age. Cons ider MRI of the pituitary with contrast for additional evaluation. Microadenoma is not excluded. 3. Some fullness of the distal basilar tip in the axial plane not identified elsewhere. Consider MRA of the [place] for additional evaluation.
[2020-02-28 14:07] VITALS: BMI 30.4
--- NOTE | 2020-02-28 16:57 | P.PN ---
Subjective Progress Note Date: 02/28/20 Principal diagnosis: Cephalgia, pyrexia The patient was seen at bedside and he continues to have headaches. His headache is holocephalic. He rates a 10 out of 10. He did have an episode of vomiting yesterday. He doesn't have any blurry vision of any weakness any numbness any any visual problems. Earlier I can see the patient and he was at MRI. Yesterday I discussed the case extensively with the infection disease attending. Objective - Vital Signs Vital signs: Vital Signs Temp 98.2 F 02/28/20 14:42 Pulse 50 L 02/28/20 14:42 Resp 17 02/28/20 14:42 BP 154/94 02/28/20 14:42 Pulse Ox 100 02/28/20 14:42 Intake & Output 02/27/20 02/28/20 02/28/20 18:59 06:59 18:59 Intake Total 400 300 Balance 400 300 Weight 113.398 kg Intake: Oral 400 300 Other: Voiding Method Toilet # Voids 3 2 3 # Emeses 1 - Exam GENERAL: The patient is lying in bed and is not in acute distress. CHEST: The heart rate is regular rate rhythm. No murmurs to auscultation. LUNG: Clear to auscultation bilaterally no wheezing noted throughout. Not labored breathing. ABDOMEN/GI: Bowel sounds present in all 4 quadrants. No tenderness to palpation throughout. NEUROLOGICAL: Higher mental function: The patient is awake, alert, oriented to self, place and time. Patient is following simpile and complex commands. No aphasia and no neglect. Cranial nerves: The pupils are red in coloration over the left eye over the medial side. The pupils are round, equal, 3mm bilaterally and reactive to light and accommodation. Visual scherer are full to confrontation throughout. Extraocular movement and there is rotatory nystamgus noted on left eye looking to the left. Facial sensation is normal to touch throughout. The facial s trength is normal throughout. Hearing is normal bilaterally to hand rub. No ear pain to touch. Tongue is midline and moved [id number] without any difficulty. No dysarthria is noted. Shoulder shrug is normal bilaterally. Motor: Gait is normal with normal arm swings. The strength is 5 over 5 t hroughout. Normal tone and bulk. Cerebellum: Normal finger to nose heel to larsen bilaterally. Sensation: Sensation is normal to touch throughout. Reflexes (right/left): 2+ throughout. Plantars are downgoing bilaterally. - Labs CBC & Chem 7: 02/28/20 07:37 02/28/20 07:37 Labs: Abnormal Lab Results - Last 24 Hours (Table) 02/28/20 02/28/20 Range/Units 07:37 07:37 RBC 4.22 L (4.30-5.90) m/uL Hgb 11.7 L (13.0-17.5) gm/dL Hct 36.6 L (39.0-53.0) % Creatinine 1.66 H (0.66-1.25) mg/dL Glucose 104 H (74-99) mg/dL Microbiology - Last 24 Hours (Table) 02/22/20 14:41 Blood Culture - Final Blood No Growth after 144 hours 02/25/20 13:36 CSF Gram Stain - Preliminary Cerebral Spinal Fluid CSF Culture - Preliminary Assessment and Plan Assessment: This is a 29-year-old gentleman with no previous medical history that has been having fevers predominantly at night, constant headache mostly holocephalic but can be also focal in the frontal temporal occipital associate with photophobia and phonophobia, ear fullness that has been going on since 02/13/2020. He also has night sweats, and chills and feeling cold associate with that. There is no sick contacts. 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 Consider placing him on broad coverage antibiotic with Acyclovir. What goes against viral is the fever was high which is atypical. Currently the patient is on Ceftriaxone, Ampicillin and Acylovir. -I ordered Lyme disease on prior CSF study and Viral panel -Consider repeating Lumbar puncture. The patient had MRI of the brain the on 02/28/2020 and a showed no acute intracranial changes identified. It was noted there is some fullness of the pituitary, slightly greater than expected for male this age. Consider MRI of the pituitary with contrast for additional evaluation. Microadenoma is not excluded. Also mentioned there is some fullness of the distal distal basilar tip in the axial plane not identified elsewhere. Consider MRA of the [place] for additional evaluation. Because of MRI Brain finding, I am considering pituitary apoplexy as one of the differential. I'll will start him on hydrocortisone IV 1 time bolus. Then the EVERY 6 hours. I will get ACTH, TSH, FSH and LH. I ordered MRI of the pituitary with and without urgent. Regarding ?dilation of basilar tip: The family was notified of the results and the was told the acute get the MRA or CTA to rule out aneurysm. The patient and the mother decided that to get MRA so he doesn't have to get contrast twice. This way he would get MRA of the head as well as the MRI of the pituitary at the same time. Also ordered ESR, CRP. I discontinued the Imitrex and started the patient on gabapentin 100 mg 100 3 times a day standing dose. As to get Tylenol when necessary. The plan was discussed with patient and his mother. Mando Pryor MD Neuro-hospitalist Time with Patient: Greater than 30
[2020-02-28] MEDS: ACYCLOVIR SODIUM 1,000 MG in SODIUM CHLORIDE 0.9% 250 ML IVPB SCH (17:48)
[2020-02-28] MEDS ORDERED: HYDROCORTISONE SUCCINATE 100 MG/2 ML VIAL IV STA (18:01)
--- NOTE | 2020-02-28 19:04 | P.PN ---
Subjective Progress Note Date: 02/28/20 Principal diagnosis: Patient was seen and examined. No acute events overnight. Patient reports occipital headache that radiates to the bitemporal area. He denies any stiff neck. He denies any chest pain, shortness of breath or palpitations. No nausea or vomiting. No fever or chills. Objective - Vital Signs Vital signs: Vital Signs Temp 98.2 F 02/28/20 14:42 Pulse 50 L 02/28/20 14:42 Resp 17 02/28/20 14:42 BP 154/94 02/28/20 14:42 Pulse Ox 100 02/28/20 14:42 Intake & Output 02/27/20 02/28/20 02/28/20 18:59 06:59 18:59 Intake Total 400 300 Balance 400 300 Weight 113.398 kg Intake: Oral 400 300 Other: Voiding Method Toilet # Voids 3 2 3 # Emeses 1 - Exam General: [non toxic], [no distress], [appears at stated age] Derm: [warm], [dry] Head: [atraumatic], [normocephalic], [symmetric] Eyes: [EOMI], [no lid lag], [anicteric sclera] Mouth: [no lip lesion], [mucus membranes moist] Cardiovascular: [S1S2 reg], [no murmur], [positive DP pulse bilateral], Lungs: [CTA bilateral], [no rhonchi, no rales] , [no accessory muscle use] Abdominal: [soft], [ nontender to palpation], [no guarding], [no appreciable organomegaly] Ext: [no gross muscle atrophy], [no edema], [no contractures] Neuro: [no focal neuro deficits] Psych: [Alert], [oriented], [appropriate affect] - Labs CBC & Chem 7: 02/28/20 07:37 02/28/20 07:37 Labs: Abnormal Lab Results - Last 24 Hours (Table) 02/28/20 02/28/20 Range/Units 07:37 07:37 RBC 4.22 L (4.30-5.90) m/uL Hgb 11.7 L (13.0-17.5) gm/dL Hct 36.6 L (39.0-53.0) % Creatinine 1.66 H (0.66-1.25) mg/dL Glucose 104 H (74-99) mg/dL Microbiology - Last 24 Hours (Table) 02/22/20 14:41 Blood Culture - Final Blood No Growth after 144 hours 02/25/20 13:36 CSF Gram Stain - Preliminary Cerebral Spinal Fluid CSF Culture - Preliminary Assessment and Plan Assessment: Headache rule out meningitis/ encephalitis abnormal MRI brain Acute kidney injury Troponin elevation CSF cultures are pending. Patient currently onampicillin IV. Will acyclovir for concerns. Started on hydrocortisone 100 mg IV every 6 hours. Pain control with gabapentin. Follow MRI pituitary with and without, MR angiogramfor results of abnormal MRI brain. Follow TSH, FSH, growth hormone, LH. Cr 1.66. Continue IVF. Avoid nephrotoxins. Repeat BMP tomorrow morning. Trop mildly elevated at 0.045. Repeat negative. Likely non thrombotic. Continue to monitor.
[2020-02-28 19:47] LABS: C Reactive Protein 32.1 mg/L (<10.0)
[2020-02-28] MEDS: INSULIN ASPART (NovoLOG) 100 UNIT/ML VIAL SQ SCH (20:18)
[2020-02-28 20:19] LABS: Glucose,Whole Blood 128 mg/dL (75-99)
[2020-02-28] MEDS: GABAPENTIN 100 MG CAP PO SCH (21:44)
--- NOTE | 2020-02-28 22:35 | PN ---
PROGRESS NOTE DATE OF SERVICE: 02/28/2020 REASON FOR FOLLOWUP: Headache, fever with concern for meningitis. INTERVAL HISTORY: The patient is currently afebrile, has been breathing comfortably. The patient did have a cough with a headache though not as severe as it was initially. No chest pain. No shortness of breath or cough, no nausea, abdominal pain or diarrhea. PHYSICAL EXAMINATION: Blood pressure 136/73 with a pulse of 72, temperature 98.2. He is 98% on room air. General description: The patient is a young male lying in bed in no distress. Respiratory system: Unlabored breathing, clear to auscultation anteriorly. Heart: S1, S2. Regular rate and rhythm. ABDOMEN: Soft, no tenderness. EXTREMITIES: No edema of the feet. LABS: Hemoglobin is 11.7, white count 7.8. Creatinine is down to 1.66. CRP is down to 32.1. MRI of the brain did not show any space-occupying lesion. Blood and CSF culture has been negative. DIAGNOSTIC IMPRESSION AND PLAN: Patient with headache and fever with concern for meningitis. Unfortunately, LP was done very late and have affected the results as well as the cultures. He will be maintained on ampicillin and Rocephin. Will likely need outpatient IV antibiotic. We will try to arrange and continue supportive care. MMODL / IJN: [id number] / RICCI
[2020-02-28] MEDS: MELATONIN 3 MG TABLET PO SCH (22:54)
[2020-02-28] MEDS: HYDROCORTISONE SUCCINATE 100 MG/2 ML VIAL IVP SCH (22:54)
[2020-02-29] MEDS: ACYCLOVIR SODIUM 1,000 MG in SODIUM CHLORIDE 0.9% 250 ML IVPB SCH ×2 (00:06→11:26)
[2020-02-29 02:58] LABS: Follicle Stimulating Hormone 1.9 mIU/mL; Luteinizing Hormone 4.3 mIU/mL
[2020-02-29] MEDS: SODIUM CHLORIDE 0.9% 1,000 ML IV SCH ×3 (03:20→16:07)
[2020-02-29] MEDS: AMPICILLIN 2,000 MG in SODIUM CHLORIDE 0.9% 100 ML IVPB SCH ×3 (03:20→12:15)
[2020-02-29] MEDS: HYDROCORTISONE SUCCINATE 100 MG/2 ML VIAL IVP SCH ×2 (05:34→12:23)
[2020-02-29 06:49] LABS: Glucose,Whole Blood 118 mg/dL (75-99)
[2020-02-29 06:54] LABS: Basophils % (A) 0 %; Eosinophils % (A) 0 %; HCT 33.6 % (39.0-53.0); HGB 10.9 gm/dL (13.0-17.5); Lymphocytes # (A) 0.7 k/uL (1.0-4.8); Lymphocytes % (A) 12 %; MCH 27.9 pg (25.0-35.0); MCHC 32.4 g/dL (31.0-37.0); Mean Platelet Volume 7.9; Monocytes # (A) 0.2 k/uL (0-1.0); Monocytes % (A) 3 %; Neutrophils # (A) 4.6 k/uL (1.3-7.7); Neutrophils % (A) 84 %; Platelet Count 226 k/uL (150-450); RBC 3.91 m/uL (4.30-5.90); RDW 12.8 % (11.5-15.5); WBC 5.5 k/uL (3.8-10.6)
[2020-02-29 07:12] LABS: Calcium 8.7 mg/dL (8.4-10.2); Potassium 4.3 mmol/L (3.5-5.1)
[2020-02-29] MEDS: INSULIN ASPART (NovoLOG) 100 UNIT/ML VIAL SQ SCH ×3 (08:37→17:03)
[2020-02-29] MEDS: GABAPENTIN 100 MG CAP PO SCH ×3 (08:57→22:10)
[2020-02-29] MEDS: HEPARIN SODIUM,PORCINE 5,000 UNIT/ML 1 ML VIAL SQ SCH ×3 (08:57→22:09)
[2020-02-29] MEDS: PANTOPRAZOLE 40 MG TABLET PO SCH (08:57)
[2020-02-29] MEDS: FERROUS SULFATE 325 MG TAB PO SCH ×2 (08:57→18:01)
[2020-02-29] MEDS ORDERED: LORazepam 2 MG/ML INJ IV PRN (09:18)
[2020-02-29] MEDS ORDERED: ALPRAZolam 0.5 MG TAB PO PRN (09:18)
--- NOTE | 2020-02-29 11:32 | PN ---
PROGRESS NOTE Patient is seen for followup for acute kidney injury, mostly associated with underlying infection as well as use of NSAIDs and patient was also on acyclovir and vancomycin initially. These are all discontinued. Renal function continues to improve. UA is completely benign. Ultrasound is unremarkable. The patient is voiding well. He is scheduled for an MRI with IV contrast today. MRI from yesterday showed a possible pituitary mass. He states that his headaches have improved significantly since the steroids were started. PHYSICAL EXAMINATION: Blood pressure is 132/72, heart rate 60 per minute, he is afebrile. Examination of the heart S1, S2. Examination of the lungs, bilateral breath sounds are heard. Abdomen is soft, nontender. Examination of the lower extremities shows no significant edema. [employer] exam grossly intact. LABS: Show sodium 139, potassium 4.3, chloride 104, BUN 16, creatinine 1.5, hemoglobin 10.9 g/dL. ASSESSMENT: 1. Acute kidney injury, multifactorial, currently improving. UA is completely benign. Ultrasound is normal. All nephrotoxic agents are currently discontinued. 2. Fever and headaches mostly associated with bacterial meningitis. The initial 2 LPs were unsuccessful. However, when the LP was done, white count was elevated. The patient was already on antibiotics when LP was performed. He is being followed by Neurology. The pituitary gland shows prominence on the MRI and today patient is scheduled for an MRI with IV contrast. 3. History of migraines. PLAN: Continue IV fluids. Continue to avoid nephrotoxic agents. Maintain off of acyclovir. MMODL / IJN: [id number] /
--- NOTE | 2020-02-29 12:00 | MR ---
EXAMINATION TYPE: MR angio head wo con DATE OF EXAM: 02/29/2020 COMPARISON: MRI brain 02/28/2020 HISTORY: Basilar tip is dilated CONTRAST: None TECHNIQUE: Multiplanar multiecho imaging on a 3.0 Veronique magnet is performed through the [place] of Jerrell lis. 3-D [id number] imaging is performed. Source images are reviewed on the computer in the axi al plane. Reconstructed images rotating on the computer are reviewed. FINDINGS: Vertebral arteries are codominant. Distal internal carotid arteries appear normal. Basilar artery in its proximal portion is normal. Attention is paid to the basilar tip. The vascular branching at the tip appears normal. No basilar ti p aneurysm is identified. Posterior cerebral branches appear normal. The internal carotid arteries bifurcate normally into A1 and M1 segments. The A2 segments are normal . Middle cerebral artery branches are normal. Ophthalmic arteries appear normal. Anterior communicating artery is patent. The right posterior communicating artery is small but patent. The left posterior communicating artery is small but patent. Posterior cerebral vasculature is normal. No suspicious aneurysm or aneurysmal dilatation is evident . No obstructions are identified. No significant flow-limiting stenosis is evident. IMPRESSIONS: 1. NORMAL MRA [place] OF [place]. 2. Basilar tip appears normal without evidence of aneurysmal dilatation or basilar tip aneurysm.
[2020-02-29 12:05] LABS: Glucose,Whole Blood 112 mg/dL (75-99)
[2020-02-29] MEDS: ACETAMINOPHEN TAB 325 MG TAB PO PRN ×2 (12:24→22:10)
--- NOTE | 2020-02-29 12:35 | MR ---
EXAMINATION TYPE: MR pituitary wo/w con DATE OF EXAM: 02/29/2020 COMPARISON: MRI brain 02/28/2020 HISTORY: Enlarged pituitary, headache CONTRAST: Standard multiplanar, multisequence MRI departmental protocol utilizing 11.5 mL intravenous Gadavist gadolinium contrast. Thin section imaging is performed through the pituitary. Pre and postcontrast i maging is performed. FINDINGS: Pituitary appearance again has a domed appearance with soft tissue extending superiorly. Th e pituitary stalk is midline. On these images the pituitary measures 0.9 x 1.2 x 1.5 cm. A normal hei ght as typically is 0.8 cm or less. The mean height for a 29-year-old patient is 6.6 mm with a standa rd deviation 1. [address] the patient measurements within 2 standard deviations of normal. The optic chiasm comes in close approximation with the superior portion of the pituitary. Compression or displacement of the chiasm is not clearly identified. No suspicious encasement of the internal ca rotid arteries and carotid siphon are evident. The pituitary appears homogenous. No microadenoma is identified. Monitoring for growth would be recom mended for potential macroadenoma which is present when the pituitary is greater than 1 cm. IMPRESSION: 1. Pituitary may be at the upper limits of normal for size in this patient. Potentially this could be developing into a macroadenoma. No microadenoma is identified at this time. Recommend monitoring for interval change.
[2020-02-29] MEDS ORDERED: diazePAM 5 MG TAB PO PRN (14:55)
[2020-02-29] MEDS ORDERED: MEROPENEM 2 GM in SODIUM CHLORIDE 0.9% 100 ML IVPB ONE (16:00)
[2020-02-29 17:01] LABS: Glucose,Whole Blood 163 mg/dL (75-99)
--- NOTE | 2020-02-29 17:21 | P.PN ---
Subjective Progress Note Date: 02/29/20 Principal diagnosis: Patient was seen and examined. No acute events overnight. Patient reports occipital headache that radiates to the bitemporal area. He denies any stiff neck. He denies any chest pain, shortness of breath or palpitations. No nausea or vomiting. No fever or chills. Patient was seen and examined. No acute events overnight. Patient reports slight improvement in his headaches since yesterday. He complains of spastic- like pain in his upper back related to staying still in the MRI machine. He denies any focal neurologic deficits. He denies any chest pain, shortness breath or palpitations. No nausea or vomiting. No fever or chills. His mother is at bedside. Objective - Vital Signs Vital signs: Vital Signs Temp 97.8 F 02/29/20 14:53 Pulse 50 L 02/29/20 14:53 Resp 20 02/29/20 16:00 BP 171/90 02/29/20 14:53 Pulse Ox 97 02/29/20 14:53 Intake & Output 02/28/20 02/29/20 02/29/20 18:59 06:59 18:59 Intake Total 300 900 Balance 300 900 Weight 113.398 kg Intake: Intake, IV Titration 900 Amount Ampicillin 2,000 mg In 200 Sodium Chloride 0.9% 100 ml @ 200 mls/hr IVPB Q4HR [facility] Rx#:[id number] Sodium Chloride 0.9% 1, 700 000 ml @ 100 mls/hr IV . Q10H [facility] Rx#:[id number] Oral 300 Other: Voiding Method Toilet # Voids 3 1 2 - Exam General: [non toxic], [no distress], [appears at stated age] Derm: [warm], [dry] Head: [atraumatic], [normocephalic], [symmetric] Eyes: [EOMI], [no lid lag], [anicteric sclera] Mouth: [no lip lesion], [mucus membranes moist] Cardiovascular: [S1S2 reg], [no murmur], [positive DP pulse bilateral], Lungs: [CTA bilateral], [no rhonchi, no rales] , [no accessory muscle use] Abdominal: [soft], [ nontender to palpation], [no guarding], [no appreciable organomegaly] Ext: [no gross muscle atrophy], [no edema], [no contractures] Neuro: [no focal neuro deficits] Psych: [Alert], [oriented], [appropriate affect] - Labs CBC & Chem 7: 02/29/20 06:20 02/29/20 06:20 Labs: Abnormal Lab Results - Last 24 Hours (Table) 02/28/20 02/28/20 02/28/20 Range/Units 18:58 18:58 20:17 RBC (4.30-5.90) m/uL Hgb (13.0-17.5) gm/dL Hct (39.0-53.0) % Lymphocytes # (1.0-4.8) k/uL ESR 58 H (0-15) mm/hr Creatinine (0.66-1.25) mg/dL Glucose (74-99) mg/dL POC Glucose (mg/dL) 128 H (75-99) mg/dL C-Reactive Protein 32.1 H (<10.0) mg/L 02/29/20 02/29/20 02/29/20 Range/Units 06:20 06:20 06:47 RBC 3.91 L (4.30-5.90) m/uL Hgb 10.9 L (13.0-17.5) gm/dL Hct 33.6 L (39.0-53.0) % Lymphocytes # 0.7 L (1.0-4.8) k/uL ESR (0-15) mm/hr Creatinine 1.51 H (0.66-1.25) mg/dL Glucose 125 H (74-99) mg/dL POC Glucose (mg/dL) 118 H (75-99) mg/dL C-Reactive Protein (<10.0) mg/L 02/29/20 02/29/20 Range/Units 12:03 16:40 RBC (4.30-5.90) m/uL Hgb (13.0-17.5) gm/dL Hct (39.0-53.0) % Lymphocytes # (1.0-4.8) k/uL ESR (0-15) mm/hr Creatinine (0.66-1.25) mg/dL Glucose (74-99) mg/dL POC Glucose (mg/dL) 112 H 163 H (75-99) mg/dL C-Reactive Protein (<10.0) mg/L Microbiology - Last 24 Hours (Table) 02/25/20 13:36 CSF Gram Stain - Preliminary Cerebral Spinal Fluid CSF Culture - Preliminary 02/22/20 14:41 Blood Culture - Final Blood No Growth after 144 hours Assessment and Plan Assessment: Headache rule out meningitis/ encephalitis Abnormal MRI brain Acute kidney injury Troponin elevation CSF cultures are pending. Patient currently on ampicillin IV. Acyclovir discontinued by infectious disease. Hydrocortisone discontinued with normal MRI pituitary and MRA today by neurology. Continued on Rocephin by infectious disease. Pain control with gabapentin. MRI pituitary shows upper limit of normal sized pituitary with no adenoma. MRA unremarkable. Discussed with neurology, plans to DC hydrocortisone. Cr 1.51. Continue IVF. Avoid nephrotoxins. Repeat BMP tomorrow morning. Trop mildly elevated at 0.045. Repeat negative. Likely non thrombotic. Continue to monitor. [Patient admitted for meningitis. On IV antibiotics. Cultures are pending. He is pending clinical improvement. ID and neurology on board. ]
--- NOTE | 2020-02-29 18:53 | P.PN ---
Subjective Progress Note Date: 02/29/20 Principal diagnosis: Cephalgia, pyrexia. The patient was seen at bedside and said his headache has been been today compared to yesterday. He denies any further episode of vomitting. Feels his left eye redness is clearing. Denies weakness, numbness, blurry vision, visual disturbance. He received steroids yesterday. Objective - Vital Signs Vital signs: Vital Signs Temp 97.8 F 02/29/20 14:53 Pulse 50 L 02/29/20 14:53 Resp 20 02/29/20 16:00 BP 171/90 02/29/20 14:53 Pulse Ox 97 02/29/20 14:53 Intake & Output 02/28/20 02/29/20 02/29/20 18:59 06:59 18:59 Intake Total 300 900 Balance 300 900 Weight 113.398 kg Intake: Intake, IV Titration 900 Amount Ampicillin 2,000 mg In 200 Sodium Chloride 0.9% 100 ml @ 200 mls/hr IVPB Q4HR [facility] Rx#:[id number] Sodium Chloride 0.9% 1, 700 000 ml @ 100 mls/hr IV . Q10H [facility] Rx#:[id number] Oral 300 Other: Voiding Method Toilet # Voids 3 1 2 - Exam GENERAL: The patient is lying in bed and is not in acute distress. CHEST: The heart rate is regular rate rhythm. No murmurs to auscultation. LUNG: Clear to auscultation bilaterally no wheezing noted throughout. Not labored breathing. ABDOMEN/GI: Bowel sounds present in all 4 quadrants. No tenderness to palpation throughout. NEUROLOGICAL: Higher mental function: The patient is awake, alert, oriented to self, place and time. Patient is following simpile and complex commands. No aphasia and no neglect. Cranial nerves: The pupils are round, equal, 3mm bilaterally and reactive to light and accommodation. Visual scherer are full to confrontation throughout. Extraocular movement and there is mild rotatory nystamgus noted on left eye looking to the left. Facial sensation is normal to touch throughout. The facial strength is normal throughout. Hearing is normal bilaterally to hand rub. No ear pain to touch. Tongue is midline and moved [id number] without any difficulty. No dysarthria is noted. Shoulder shrug is normal bilaterally. Motor: Gait is normal with normal arm swings. The strength is 5 over 5 throughout. Normal tone and bulk. Cerebellum: Normal finger to nose heel to [place] bilaterally. Sensation: Sensation is normal to touch throughout. Reflexes (right/left): 2+ throughout. Plantars are downgoing bilaterally. - Labs CBC & Chem 7: 02/29/20 06:20 02/29/20 06:20 Labs: Abnormal Lab Results - Last 24 Hours (Table) 02/28/20 02/28/20 02/28/20 Range/Units 18:58 18:58 20:17 RBC (4.30-5.90) m/uL Hgb (13.0-17.5) gm/dL Hct (39.0-53.0) % Lymphocytes # (1.0-4.8) k/uL ESR 58 H (0-15) mm/hr Creatinine (0.66-1.25) mg/dL Glucose (74-99) mg/dL POC Glucose (mg/dL) 128 H (75-99) mg/dL C-Reactive Protein 32.1 H (<10.0) mg/L 02/29/20 02/29/20 02/29/20 Range/Units 06:20 06:20 06:47 RBC 3.91 L (4.30-5.90) m/uL Hgb 10.9 L (13.0-17.5) gm/dL Hct 33.6 L (39.0-53.0) % Lymphocytes # 0.7 L (1.0-4.8) k/uL ESR (0-15) mm/hr Creatinine 1.51 H (0.66-1.25) mg/dL Glucose 125 H (74-99) mg/dL POC Glucose (mg/dL) 118 H (75-99) mg/dL C-Reactive Protein (<10.0) mg/L 02/29/20 02/29/20 Range/Units 12:03 16:40 RBC (4.30-5.90) m/uL Hgb (13.0-17.5) gm/dL Hct (39.0-53.0) % Lymphocytes # (1.0-4.8) k/uL ESR (0-15) mm/hr Creatinine (0.66-1.25) mg/dL Glucose (74-99) mg/dL POC Glucose (mg/dL) 112 H 163 H (75-99) mg/dL C-Reactive Protein (<10.0) mg/L Microbiology - Last 24 Hours (Table) 02/25/20 13:36 CSF Gram Stain - Preliminary Cerebral Spinal Fluid CSF Culture - Preliminary 02/22/20 14:41 Blood Culture - Final Blood No Growth after 144 hours Assessment and Plan Assessment: This is a 29-year-old gentleman with no previous medical history that has been having fevers predominantly at night, constant headache mostly holocephalic but can be also focal in the frontal temporal occipital associate with photophobia and phonophobia, ear fullness that has been going on since 02/13/2020. He also has night sweats, and chills and feeling cold associate with that. There is no sick contacts. 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 Consider placing him on broad coverage antibiotic with Acyclovir. What goes against viral is the fever was high which is atypical. Currently the patient is on Meropenem and Ampicillin -I ordered Lyme disease on prior CSF study. Viral CSF is negative. -The patient does not want to repeat lumbar puncture. The patient had MRI of the brain the on 02/28/2020 and a showed no acute intracranial changes identified. It was noted there is some fullness of the pituitary, slightly greater than expected for male this age. Consider MRI of the pituitary with contrast for additional evaluation. Microadenoma is not excluded. Also mentioned there is some fullness of the distal distal basilar tip in the axial plane not identified elsewhere. Consider MRA of the [place] for additional evaluation. Because of MRI Brain finding, I was considering pituitary apoplexy as one of the differential so I started him on Hydrocortisone. But because MRI Pituitary is normal it does not look like pituitary apoplexy. ACTH <5.0, TSH: 1.72 (nl), FSH: 1.9 (nl) and LH: 4.3 (nl) Procalcitonin 0.20 (high) I ordered MRI of the pituitary with and without urgent. MRI Pituitary: Was reported as pituitary may be at the upper limits of normal for size and that in this patient. Potentially this could be developing into a macroadenoma. No micro-is identified at this time. Recommend monitoring for interval change. MRA head: Normal. His current ESR 58 and CRP was 65.7 on 02/22/20 and currently 32.1 on 02/27 Continue Gabapentin 100 mg 3 times a day standing dose. As to get Tylenol when necessary. The plan was discussed with patient and his mother. Mando Pryor MD Neuro-hospitalist Time with Patient: Greater than 30
[2020-02-29] MEDS: MELATONIN 3 MG TABLET PO SCH (22:10)
[2020-02-29] MEDS: MEROPENEM 2 GM in SODIUM CHLORIDE 0.9% 100 ML IVPB SCH (22:25)
--- NOTE | 2020-03-01 01:03 | PN ---
PROGRESS NOTE DATE OF SERVICE: 02/29/2020 REASON FOR FOLLOWUP: Possible bacterial meningitis. INTERVAL HISTORY: Patient was seen on rounds this afternoon. The patient overall has been feeling better. The patient denies having any chest pain or shortness of breath or cough. His headache has improved. No further nausea. No vomiting. No abdominal pain. No diarrhea. Patient was started on steroids per Neurology. On examination his blood pressure is 149/80 with a pulse of 56, temperature 97.6 and he is 99% on room air. General description is a middle-aged male lying in bed in no distress. Respiratory system: Unlabored breathing, clear to auscultation anteriorly. Heart S1, S2. Regular rate and rhythm. Abdomen soft, no tenderness. Extremities reveal no edema of the feet. LABS: Hemoglobin is 10.3, white count 5.5, BUN of 16, creatinine 1.57. CSF culture has been negative so far. DIAGNOSTIC IMPRESSION AND PLAN: Patient with a headache with a concern for meningitis. Unfortunately, the CSF was not done on time and has affected the results with concern for possible strep pneumo or Listeria as the patient seemed to have some clinical improvement after he was started on ampicillin, now to transition to outpatient antibiotic and We will switch him over to meropenem 2 grams q.8 hours and will see his clinical response. Steroids should be discontinued, especially with concern for meningitis and especially in cases of Listeria it is not recommended to decrease risk of any neurological side effects. This has been discussed in detail with the patient who finally agreed to have the steroids discontinued. Significant amount of time was spent with the patient and his mother. All questions were answered. Face to face time and discussion was more than 25 minutes. MMODL / IJN: [id number] / RICCI
[2020-03-01] MEDS: FERROUS SULFATE 325 MG TAB PO SCH ×2 (07:03→16:32)
[2020-03-01] MEDS: PANTOPRAZOLE 40 MG TABLET PO SCH ×2 (07:03→07:05)
[2020-03-01] MEDS: HEPARIN SODIUM,PORCINE 5,000 UNIT/ML 1 ML VIAL SQ SCH ×3 (07:04→22:59)
[2020-03-01] MEDS: GABAPENTIN 100 MG CAP PO SCH ×3 (07:04→22:26)
[2020-03-01] MEDS: ACETAMINOPHEN TAB 325 MG TAB PO PRN ×3 (07:07→19:35)
[2020-03-01] MEDS: MEROPENEM 2 GM in SODIUM CHLORIDE 0.9% 100 ML IVPB SCH ×3 (08:19→23:00)
[2020-03-01] MEDS: SODIUM CHLORIDE 0.9% 1,000 ML IV SCH ×2 (08:21→22:27)
[2020-03-01 08:48] LABS: Basophils % (A) 1 %; Eosinophils % (A) 1 %; HCT 34.6 % (39.0-53.0); HGB 11.1 gm/dL (13.0-17.5); Lymphocytes # (A) 1.3 k/uL (1.0-4.8); Lymphocytes % (A) 25 %; MCH 28.2 pg (25.0-35.0); MCHC 32.2 g/dL (31.0-37.0); MCV 87.7 fL (80.0-100.0); Mean Platelet Volume 8.3; Monocytes # (A) 0.2 k/uL (0-1.0); Monocytes % (A) 4 %; Neutrophils # (A) 3.6 k/uL (1.3-7.7); Neutrophils % (A) 69 %; Platelet Count 185 k/uL (150-450); RBC 3.95 m/uL (4.30-5.90); RDW 13.4 % (11.5-15.5); WBC 5.2 k/uL (3.8-10.6)
[2020-03-01 08:54] LABS: Calcium 8.4 mg/dL (8.4-10.2); Potassium 3.8 mmol/L (3.5-5.1)
--- NOTE | 2020-03-01 10:58 | P.PN ---
Subjective Patient is seen in follow-up for acute kidney injury. Renal function better. Good urine output. Oral intake good. No vomiting or diarrhea. No edema. Vital signs are stable. General: The patient appeared well nourished and normally developed. HEENT: Head exam is unremarkable. Neck is without jugular venous distension. LUNGS: Lungs are clear to auscultation and percussion. Breath sounds decreased. HEART: Rate and Rhythm are regular. ABDOMEN: Soft, nontender. EXTREMITITES: No clubbing, cyanosis, or edema. Objective - Vital Signs Vital signs: Vital Signs Temp 97.5 F L 03/01/20 07:08 Pulse 49 L 03/01/20 07:08 Resp 16 03/01/20 07:10 BP 148/90 03/01/20 07:08 Pulse Ox 98 03/01/20 07:08 Intake & Output 02/29/20 03/01/20 03/01/20 18:59 06:59 18:59 Intake Total 900 Balance 900 Intake: Intake, IV Titration 900 Amount Ampicillin 2,000 mg In 200 Sodium Chloride 0.9% 100 ml @ 200 mls/hr IVPB Q4HR [facility] Rx#:[id number] Sodium Chloride 0.9% 1, 700 000 ml @ 100 mls/hr IV . Q10H [facility] Rx#:[id number] Other: Voiding Method Toilet Toilet # Voids 2 2 - Labs CBC & Chem 7: 03/01/20 07:36 03/01/20 07:36 Labs: Abnormal Lab Results - Last 24 Hours (Table) 02/29/20 02/29/20 03/01/20 Range/Units 12:03 16:40 07:36 RBC 3.95 L (4.30-5.90) m/uL Hgb 11.1 L (13.0-17.5) gm/dL Hct 34.6 L (39.0-53.0) % Creatinine (0.66-1.25) mg/dL POC Glucose (mg/dL) 112 H 163 H (75-99) mg/dL 03/01/20 Range/Units 07:36 RBC (4.30-5.90) m/uL Hgb (13.0-17.5) gm/dL Hct (39.0-53.0) % Creatinine 1.36 H (0.66-1.25) mg/dL POC Glucose (mg/dL) (75-99) mg/dL Microbiology - Last 24 Hours (Table) 02/25/20 13:36 CSF Gram Stain - Final Cerebral Spinal Fluid CSF Culture - Final Assessment and Plan Plan: Assessment: 1. Acute kidney injury mostly prerenal secondary to nonsteroidals. Patient was also on acyclovir and vancomycin. Improving. Creatinine 1.36 today. 2. Fever and headaches with concern for meningitis. Infectious disease following. 3. History of migraines. Plan: Decrease normal saline to 50 mL an hour. Continue to monitor renal function and urine output.
--- NOTE | 2020-03-01 17:11 | P.PN ---
Subjective Progress Note Date: 03/01/20 Principal diagnosis: Meningitis Patient was seen and examined. No acute events overnight. Patient reports significant improvement in his headache since yesterday. He denies any chest pain, shortness breath or palpitations. No nausea or vomiting. No fever or chills. Continues to complain of mild spasms in his upper back. Objective - Vital Signs Vital signs: Vital Signs Temp 98.1 F 03/01/20 14:18 Pulse 55 L 03/01/20 14:18 Resp 16 03/01/20 14:18 BP 144/83 03/01/20 14:18 Pulse Ox 99 03/01/20 14:18 Intake & Output 02/29/20 03/01/20 03/01/20 18:59 06:59 18:59 Intake Total 900 Balance 900 Intake: Intake, IV Titration 900 Amount Ampicillin 2,000 mg In 200 Sodium Chloride 0.9% 100 ml @ 200 mls/hr IVPB Q4HR [facility] Rx#:[id number] Sodium Chloride 0.9% 1, 700 000 ml @ 100 mls/hr IV . Q10H [facility] Rx#:[id number] Other: Voiding Method Toilet Toilet # Voids 2 2 - Exam General: [non toxic], [no distress], [appears at stated age] Derm: [warm], [dry] Head: [atraumatic], [normocephalic], [symmetric] Eyes: [EOMI], [no lid lag], [anicteric sclera] Mouth: [no lip lesion], [mucus membranes moist] Cardiovascular: [S1S2 reg], [no murmur], [positive DP pulse bilateral], Lungs: [CTA bilateral], [no rhonchi, no rales] , [no accessory muscle use] Abdominal: [soft], [ nontender to palpation], [no guarding], [no appreciable organomegaly] Ext: [no gross muscle atrophy], [no edema], [no contractures] Neuro: [no focal neuro deficits] Psych: [Alert], [oriented], [appropriate affect] - Labs CBC & Chem 7: 03/01/20 07:36 03/01/20 07:36 Labs: Abnormal Lab Results - Last 24 Hours (Table) 03/01/20 03/01/20 Range/Units 07:36 07:36 RBC 3.95 L (4.30-5.90) m/uL Hgb 11.1 L (13.0-17.5) gm/dL Hct 34.6 L (39.0-53.0) % Creatinine 1.36 H (0.66-1.25) mg/dL Microbiology - Last 24 Hours (Table) 02/25/20 13:36 CSF Gram Stain - Final Cerebral Spinal Fluid CSF Culture - Final Assessment and Plan Assessment: Headache rule out meningitis/ encephalitis Enlarged pituitary Acute kidney injury Troponin elevation CSF cultures are so far negative. Viral panel was negative. Coronavirus testing was negative. ESR and CRP are elevated. Antibiotics switched to cailin penem by anxiety. Hydrocortisone discontinued with normal MRI pituitary and MRA by neurology. CSF analysis shows elevated total nucleated cells with 88% mononuclear WBCs pointing towards viral picture versus listeria. Pain control with gabapentin. Case was discussed with Dr. Cardoza. MRI pituitary shows upper limit of normal sized pituitary with no adenoma. MRA unremarkable. Discussed with neurology, plans to DC hydrocortisone. ACTH negative. LH, FSH negative. Cr 1.36. Continue IVF at a lower dose. Avoid nephrotoxins. Repeat BMP tomorrow morning. Follow nephrology recommendations. Trop mildly elevated at 0.045. Repeat negative. Likely non thrombotic. Continue to monitor. [Patient admitted for meningitis. On IV antibiotics. Cultures are negative. He is pending clinical improvement. ID and neurology on board. Plans for midline on Tuesday and possible discharge. ]
--- NOTE | 2020-03-01 19:29 | P.PN ---
Subjective Progress Note Date: 03/01/20 The patient is a 29-year-old male who is seen in neurologic follow-up on March 01, 2020, via teleneurology. The patient's mother is present at the bedside at the time of the evaluation. The patient reports feeling much better. He denies nausea and vomiting. He denies fever. He does report a tight feeling in the back of his head, neck and between his shoulder blades. He reports having a better appetite. He slept well last night. Objective - Vital Signs Vital signs: Vital Signs Temp 97.5 F L 03/01/20 07:08 Pulse 49 L 03/01/20 07:08 Resp 16 03/01/20 07:10 BP 148/90 03/01/20 07:08 Pulse Ox 98 03/01/20 07:08 Intake & Output 02/29/20 03/01/20 03/01/20 18:59 06:59 18:59 Intake Total 900 Balance 900 Intake: Intake, IV Titration 900 Amount Ampicillin 2,000 mg In 200 Sodium Chloride 0.9% 100 ml @ 200 mls/hr IVPB Q4HR [facility] Rx#:[id number] Sodium Chloride 0.9% 1, 700 000 ml @ 100 mls/hr IV . Q10H [facility] Rx#:[id number] Other: Voiding Method Toilet Toilet # Voids 2 2 - Exam Gen.: The patient is reclining in the bed. He is well-nourished, well-developed and in no acute distress. HEENT: Head is atraumatic, normocephalic. Fundus not visualized. There is no scleral icterus. Mucous members are moist. Neck: There is discomfort with flexion of the chin to the chest. Neurological examination Mental status: Patient is awake, alert and oriented 3. His speech is clear. Cranial nerves: Pupils are equal, round and reactive to light. Visual scherer are full to confrontation. Extraocular movements are intact. There is no nystagmus. Facial sensation is intact. There is no facial asymmetry. Hearing is grossly intact. Uvula and palate are midline. Shoulder shrug is symmetric. Tongue protrudes midline. Motor: Strength is 5/5 throughout - Labs CBC & Chem 7: 03/01/20 07:36 03/01/20 07:36 Labs: Abnormal Lab Results - Last 24 Hours (Table) 02/29/20 03/01/20 03/01/20 Range/Units 16:40 07:36 07:36 RBC 3.95 L (4.30-5.90) m/uL Hgb 11.1 L (13.0-17.5) gm/dL Hct 34.6 L (39.0-53.0) % Creatinine 1.36 H (0.66-1.25) mg/dL POC Glucose (mg/dL) 163 H (75-99) mg/dL Microbiology - Last 24 Hours (Table) 02/25/20 13:36 CSF Gram Stain - Final Cerebral Spinal Fluid CSF Culture - Final Assessment and Plan Assessment: 1. Viral meningitis-CSF reveals many white cells, there is a predominance of monocytes, protein is 46, may also represent partially treated bacterial meningitis, as lumbar puncture was done after antibiotics have been started Plan: 1. Continue antiviral and antibiotic medications Time with Patient: Less than 30 (spent 25 minutes with patient via teleneurology)
[2020-03-01] MEDS: MELATONIN 3 MG TABLET PO SCH (22:26)
--- NOTE | 2020-03-01 23:19 | PN ---
PROGRESS NOTE DATE OF SERVICE: 03/01/2020 REASON FOR FOLLOWUP: Meningitis, possible bacterial/listeria. INTERVAL HISTORY: The patient is currently afebrile. The patient is feeling better. Breathing comfortably. The patient headache has resolved. No photophobia. No nausea, vomiting. No abdominal pain or diarrhea. Overall feeling better. PHYSICAL EXAMINATION: On examination, the blood pressure 135/79 with a pulse of 60, temperature 97.8. He is 100% on room air. General description: The patient is a middle-aged male lying in bed in no distress. Respiratory system: Unlabored breathing. Clear to auscultation anteriorly. Heart S1, S2. Regular rate and rhythm. Abdomen soft, no tenderness. LABS: White count normal. Creatinine is down to 1.36. DIAGNOSTIC IMPRESSION AND PLAN: Patient with headache and fever with concern for meningitis likely bacterial as the LP was done very late. The patient has shown overall improvement with meropenem that will be continued outpatient for another 2 weeks and close outpatient followup. MMODL / IJN: [id number] / RICCI
[2020-03-02] MEDS: FERROUS SULFATE 325 MG TAB PO SCH ×2 (08:00→17:24)
[2020-03-02] MEDS: GABAPENTIN 100 MG CAP PO SCH ×3 (08:00→22:29)
[2020-03-02] MEDS: PANTOPRAZOLE 40 MG TABLET PO SCH (08:00)
[2020-03-02] MEDS: HEPARIN SODIUM,PORCINE 5,000 UNIT/ML 1 ML VIAL SQ SCH ×3 (08:00→23:03)
[2020-03-02] MEDS: ACETAMINOPHEN TAB 325 MG TAB PO PRN ×3 (08:00→21:04)
[2020-03-02] MEDS: MEROPENEM 2 GM in SODIUM CHLORIDE 0.9% 100 ML IVPB SCH ×3 (09:12→23:03)
--- NOTE | 2020-03-02 10:08 | P.PN ---
Subjective Patient is seen in follow-up for acute kidney injury. Renal function has been improving. Good urine output. Oral intake good. No vomiting or diarrhea. No edema. No changes overnight. Vital signs are stable. General: The patient appeared well nourished and normally developed. HEENT: Head exam is unremarkable. Neck is without jugular venous distension. LUNGS: Lungs are clear to auscultation and percussion. Breath sounds decreased. HEART: Rate and Rhythm are regular. ABDOMEN: Soft, nontender. EXTREMITITES: No clubbing, cyanosis, or edema. Objective - Vital Signs Vital signs: Vital Signs Temp 98.4 F 03/02/20 07:17 Pulse 70 03/02/20 07:17 Resp 16 03/02/20 07:17 BP 131/89 03/02/20 07:17 Pulse Ox 97 03/02/20 07:17 Intake & Output 03/01/20 03/02/20 03/02/20 18:59 06:59 18:59 Intake Total 400 Balance 400 Intake: Oral 400 Other: Voiding Method Toilet Toilet # Voids 2 1 - Labs CBC & Chem 7: 03/01/20 07:36 03/01/20 07:36 Assessment and Plan Plan: Assessment: 1. Acute kidney injury mostly prerenal secondary to nonsteroidals. Patient was also on acyclovir and vancomycin. Improving. Creatinine 1.36 as of yesterday. 2. Fever and headaches with concern for meningitis. Infectious disease following. 3. History of migraines. Plan: Hep-Lock IV fluids. Continue to monitor renal function and urine output.
--- NOTE | 2020-03-02 16:54 | P.PN ---
Subjective Progress Note Date: 03/02/20 Principal diagnosis: Meningitis Patient was seen and examined. No acute events overnight. Patient reports significant improvement in his headache since yesterday. He denies any chest pain, shortness breath or palpitations. No nausea or vomiting. No fever or chills. Wanting to go home. Objective - Vital Signs Vital signs: Vital Signs Temp 98.5 F 03/02/20 14:15 Pulse 61 03/02/20 14:15 Resp 16 03/02/20 16:00 BP 153/74 03/02/20 14:15 Pulse Ox 97 03/02/20 14:15 Intake & Output 03/01/20 03/02/20 03/02/20 18:59 06:59 18:59 Intake Total 400 Balance 400 Weight 113.398 kg Intake: Oral 400 Other: Voiding Method Toilet Toilet # Voids 2 1 2 - Exam General: [non toxic], [no distress], [appears at stated age] Derm: [warm], [dry] Head: [atraumatic], [normocephalic], [symmetric] Eyes: [EOMI], [no lid lag], [anicteric sclera] Mouth: [no lip lesion], [mucus membranes moist] Cardiovascular: [S1S2 reg], [no murmur], [positive DP pulse bilateral], Lungs: [CTA bilateral], [no rhonchi, no rales] , [no accessory muscle use] Abdominal: [soft], [ nontender to palpation], [no guarding], [no appreciable organomegaly] Ext: [no gross muscle atrophy], [no edema], [no contractures] Neuro: [no focal neuro deficits] Psych: [Alert], [oriented], [appropriate affect] - Labs CBC & Chem 7: 03/01/20 07:36 03/01/20 07:36 Assessment and Plan Assessment: Headache rule out meningitis/ encephalitis Enlarged pituitary Acute kidney injury Troponin elevation CSF cultures are so far negative. Viral panel was negative. Coronavirus testing was negative. ESR and CRP are elevated. Antibiotics switched to meropenem by ID. Hydrocortisone discontinued with normal MRI pituitary and MRA by neurology. CSF analysis shows elevated total nucleated cells with 88% mononuclear WBCs pointing towards viral picture versus listeria. Pain control with gabapentin. Case was discussed with Dr. Sony. MRI pituitary shows upper limit of normal sized pituitary with no adenoma. MRA unremarkable. Discussed with neurology, plans to DC hydrocortisone. ACTH negative. LH, FSH negative. Cr 1.36. Continue IVF at a lower dose. Avoid nephrotoxins. Repeat BMP tomorrow morning. Follow nephrology recommendations. Trop mildly elevated at 0.045. Repeat negative. Likely non thrombotic. Continue to monitor. [Patient admitted for meningitis. On IV antibiotics. Cultures are negative. He is pending clinical improvement. ID and neurology on board. Plans for midline tomorrow and possible discharge. ]
[2020-03-02] MEDS: MELATONIN 3 MG TABLET PO SCH (22:29)
--- NOTE | 2020-03-03 00:26 | PN ---
PROGRESS NOTE DATE OF SERVICE: 03/02/2020 REASON FOR FOLLOWUP: Meningitis, possible bacterial, question of listeria. INTERVAL HISTORY: The patient is currently afebrile. Patient is feeling better. The patient's headache has much improved. The patient denies having nausea, no vomiting. No chest pain, shortness of breath or cough. No abdominal pain or diarrhea. PHYSICAL EXAMINATION: Blood pressure 153/74 with a pulse of 61, temperature 98.5. He is 97% on room air. General description is a young male lying in bed in no distress. RESPIRATORY SYSTEM: Unlabored breathing, clear to auscultation anteriorly. HEART: S1, S2. Regular rate and rhythm. ABDOMEN: Soft, no tenderness. LABS: No new labs have been obtained today. DIAGNOSTIC IMPRESSION AND PLAN: Patient presented to the hospital with a fever and headache with concern for meningitis possible bacterial. The patient's LP has been done very late during the treatment that is why results are slightly confusing. However, the patient clinically responded to meropenem and ampicillin with concern for possible listeria. We will keep patient on meropenem for at least another 2 weeks and close outpatient followup. The patient and his mother have multiple questions, which have been answered in the meantime. MMODL / IJN: [id number] /
[2020-03-03] MEDS: GABAPENTIN 100 MG CAP PO SCH (08:00)
[2020-03-03] MEDS: HEPARIN SODIUM,PORCINE 5,000 UNIT/ML 1 ML VIAL SQ SCH (08:00)
[2020-03-03] MEDS: PANTOPRAZOLE 40 MG TABLET PO SCH (08:00)
[2020-03-03] MEDS: FERROUS SULFATE 325 MG TAB PO SCH (08:00)
[2020-03-03] MEDS: MEROPENEM 2 GM in SODIUM CHLORIDE 0.9% 100 ML IVPB SCH ×2 (08:00→14:09)
[2020-03-03] MEDS: ACETAMINOPHEN TAB 325 MG TAB PO PRN ×2 (08:10→14:08)
--- NOTE | 2020-03-03 12:25 | P.PN ---
Subjective Patient is seen in follow-up for acute kidney injury. Renal function has been improving. Good urine output. Oral intake good. No vomiting or diarrhea. No edema. No changes overnight. Vital signs are stable. General: The patient appeared well nourished and normally developed. HEENT: Head exam is unremarkable. Neck is without jugular venous distension. LUNGS: Lungs are clear to auscultation and percussion. Breath sounds decreased. HEART: Rate and Rhythm are regular. ABDOMEN: Soft, nontender. EXTREMITITES: No clubbing, cyanosis, or edema. Objective - Vital Signs Vital signs: Vital Signs Temp 98.4 F 03/03/20 07:16 Pulse 62 03/03/20 07:16 Resp 18 03/03/20 08:05 BP 129/78 03/03/20 07:16 Pulse Ox 96 03/03/20 07:16 Intake & Output 03/02/20 03/03/20 03/03/20 18:59 06:59 18:59 Intake Total 700 Balance 700 Weight 113.398 kg Intake: Oral 700 Other: Voiding Method Toilet # Voids 2 1 - Labs CBC & Chem 7: 03/01/20 07:36 03/01/20 07:36 Assessment and Plan Plan: Assessment: 1. Acute kidney injury mostly prerenal secondary to nonsteroidals. Patient was also on acyclovir and vancomycin. Improving. Creatinine 1.36 as of February. 2. Fever and headaches with concern for meningitis. Infectious disease following. 3. History of migraines. Plan: Hep-Lock IV fluids. Continue to monitor renal function and urine output. Stable for discharge from nephrology standpoint. Follow up outpatient in 2 weeks.
--- NOTE | 2020-03-03 12:55 | P.PN ---
Subjective Progress Note Date: 03/03/20 Principal diagnosis: Meningitis The patient was seen at [facility] and is accompanied by his mother, who feels a lot better. He feels his headache is 2/10 and is holocephalic or over frontal or occipital region. He does have some photophobia but no phonophobia. He denies any further nausea or vomitting. He feels his eyes has cleared up. He denies any weakness or numbness. Objective - Vital Signs Vital signs: Vital Signs Temp 98.4 F 03/03/20 07:16 Pulse 62 03/03/20 07:16 Resp 18 03/03/20 08:05 BP 129/78 03/03/20 07:16 Pulse Ox 96 03/03/20 07:16 Intake & Output 03/02/20 03/03/20 03/03/20 18:59 06:59 18:59 Intake Total 700 Balance 700 Weight 113.398 kg Intake: Oral 700 Other: Voiding Method Toilet # Voids 2 1 - Exam GENERAL: The patient is lying in bed and is not in acute distress. CHEST: The heart rate is regular rate rhythm. No murmurs to auscultation. LUNG: Clear to auscultation bilaterally no wheezing noted throughout. Not labored breathing. ABDOMEN/GI: Bowel sounds present in all 4 quadrants. No tenderness to palpation throughout. NEUROLOGICAL: Higher mental function: The patient is awake, alert, oriented to self, place and time. Patient is following simpile and complex commands. No aphasia and no neglect. Cranial nerves: The pupils are round, equal, 3mm bilaterally and reactive to light and accommodation. Visual scherer are full to confrontation throughout. Extraocular movement is intact and no nystagmus. Facial sensation is normal to touch throughout. The facial strength is normal throughout. Hearing is normal bilaterally to hand rub. No ear pain to touch. Tongue is midline and moved [id number] without any difficulty. No dysarthria is noted. Shoulder shrug is normal bilaterally. Motor: Gait is normal with normal arm swings. The strength is 5 over 5 throughout. Normal tone and bulk. Cerebellum: Normal finger to nose heel to [place] bilaterally. Sensation: Sensation is normal to touch throughout. Reflexes (right/left): 2+ throughout. Plantars are downgoing bilaterally. - Labs CBC & Chem 7: 03/01/20 07:36 03/01/20 07:36 Assessment and Plan Assessment: This is a 29-year-old gentleman with no previous medical history that has been having fevers predominantly at night, constant headache mostly holocephalic but can be also focal in the frontal temporal occipital associate with photophobia and phonophobia, ear fullness that has been going on since 02/13/2020. He also has night sweats, and chills and feeling cold associate with that. There are no sick contacts. Meningitis: Cephalgia with pyrexia with night sweats and chills and conjuctival redness especially the left eye: Cephalgia--improving Pyrexia--resolved RACHEL--improving Plan: Meningitis: reason for that as he had elevated white blood cells of 18 nucleated cells, 88% mononuclear wbc, protein 46, glucose 53 on 02/25/2020 and that's after couple days of antibiotic as well as acyclovir as well was on antibiotic prior to this admission. What goes against viral is the fever was high which is atypical. Currently the patient is on Meropenem Viral CSF is negative. ESR 58 and CRP was 65.7 on 02/22/20 and currently 32.1 on 02/27 The patient had MRI of the brain the on 02/28/2020 and a showed no acute intracranial changes identified. It was noted there is some fullness of the pituitary, slightly greater than expected for male this age. Consider MRI of the pituitary with contrast for additional evaluation. Microadenoma is not excluded. Also mentioned there is some fullness of the distal distal basilar tip in the axial plane not identified elsewhere. Consider MRA of the [place] for additional evaluation. Because of MRI Brain finding and patient presentation, I was considering pituitary apoplexy as one of the differential so I started him on H ydrocortisone. ACTH <5.0, TSH: 1.72 (nl), FSH: 1.9 (nl) and LH: 4.3 (nl) Procalcitonin 0.20 (high) MRI Pituitary: Was reported as pituitary may be at the upper limits of normal for size and that in this patient. Potentially this could be developing into a macroadenoma. No micro-is identified at this time. Recommend monitoring for interval change. MRA head: Normal. After MRI Pituitary, Hydrocortisone was stopped. Continue Gabapentin 100 mg 3 times a day standing dose. Tylenol when necessary. I.D. team is on board. Patient has a midline and is scheduled to be discharged today and to follow-up with I.D. as outpatient. The plan was discussed with patient and his mother. Mando Pryor MD Neuro-hospitalist Time with Patient: Less than 30
--- NOTE | 2020-03-03 14:15 | PN ---
PROGRESS NOTE DATE OF SERVICE: 03/03/2020 REASON FOR FOLLOWUP: Meningitis questionable listeria. INTERVAL HISTORY: Patient is currently afebrile. Patient is feeling better. Breathing comfortably. The patient headache is down to about 2/10 and is occasionally persistent. No chest pain, shortness of breath or cough. No nausea, no vomiting. No abdominal pain, no diarrhea. PHYSICAL EXAMINATION: Blood pressure 129/70 with a pulse of 52, temperature 98.4. He is 96% on room air. General description is a young male, lying in bed in no distress. RESPIRATORY SYSTEM: Unlabored breathing, clear to auscultation anteriorly. HEART: S1, S2. Regular rate and rhythm. ABDOMEN: Soft, no tenderness. LABS: Last CRP was 32.1. Initial CRP was 65.7 and a sedimentation rate of 58. IMPRESSION/PLAN: Patient hospital with fever and headache with concern for meningitis, possible bacterial. In view of the significant pseudomonas I have seen and the possibly of listeria with interim course. The patient is currently responding to meropenem 2 g q.8 hours; to be continued for 2 weeks with weekly monitor CBC, BMP and sedimentation rate and close outpatient followup. MMODL / IJN: [id number] /
--- NOTE | 2020-03-03 14:47 | P.DS ---
Providers Date of admission: 02/22/20 19:40 Expected date of discharge: 03/03/20 Attending physician: Herrera Banda MD Consults: 02/22/20 19:42 Consult Physician Urgent Consulting Provider: Norbert Cardoza Consult Reason/Comments: acute pyrexia, possible menigitis Do you want consulting provider notified?: Yes 02/23/20 15:38 Consult Physician Stat Consulting Provider: Anesthesia,Services Consult Reason/Comments: Lumbar puncture and CSF Do you want consulting provider notified?: Yes 02/25/20 09:31 Consult Physician Routine Consulting Provider: Radha Solomon Consult Reason/Comments: RACHEL? Do you want consulting provider notified?: Yes 02/26/20 12:30 Consult Physician Routine Consulting Provider: Mando Pryor Consult Reason/Comments: Persistent headache Do you want consulting provider notified?: Yes Primary care physician: Stated None Hospital Course: 29 year old male with no significant past medical history patient comes in with 8 days history of fever and chills. he reprots recent travel by air with family to [place] , limited contact with only people close within the family , none of them seem to be sick. few days after returning he started having fevers, chills, and severe headaches. no other reported symptoms . he denies any GI changes, denies nausea vomiting, SOB, or chest pain , denies myalgias. he reports severe throbbing headache, frontal radiates to both sides and the back of his head and neck, no neck stiffness, no focal neuro deficits. he denies any URI symptoms, or changes in taste or smell sensation . he is in good health otherwise, denies taking any medications or illegal drugs. he only drinks few beers occasionally . he was evaluated by a doctor virtually and was initially started on bactrim (received one or two doses) , then switched to levaquin (received 3 doses )no much benefit with either, he was evaluated in our ED 5 days ago and COVID swab was negative. he comes in again today due to worsening headache, and persistent fever. no other symptoms no one else sick in his family in the ED, blood work over all unremarkable . patient suspected to have meningitis, failed two attempts at getting LP. he was started on broad empiric antibiotic coverage. and admitted for close monitoring repeated COVID swab done in the ED Brain CT and CT of the internal auditory canal was negative. Infectious disease was consulted and patient was started on Rocephin and vancomycin along with acyclovir for concerns of meningitis. Lumbar puncture was delayed due to failed attempts. Echocardiogram was obtained which showed EF 60-65% with mild concentric LVH. Lumbar puncture was eventually obtained by interventional radiology which showed elevated total nucleated cells of 18, 88% mononuclear WBCs. Coronavirus testing was negative. Viral panel was negative. HSV and HIV testing was negative. ESR and CRP were elevated. Acyclovir was discontinued due to worsening renal function. Vancomycin was switched to ampicillin. Ampicillin and Rocephin were eventually discontinued for meropenem. Neurology was consulted and recommended MRI brain. MRI brain showed fullness of the pituitary slightly greater than expected age and fullness of the distal basilar tip. MRA was negative. MRI of the pituitary excluded microadenoma. Patient was initially started on hydrocortisone for concerns of pituitary apoplexy which was discontinued with normal MRI pituitary and MRA. His pain was controlled with gabapentin. ACTH, LH and FSH was negative. He did have a mild elevated troponin of 0.045 which is negative on repeat testing. Patient continued to show improvement during his hospitalization. Infectious disease recommended midline and 2 weeks of meropenem at home. Patient was seen and examined. No acute events overnight. Patient reports significant improvement in his headache. He denies any stiff neck. He denies any chest pain, shortness breath or palpitations. No nausea or vomiting. No fever or chills. Wanting to go home. General: [non toxic], [no distress], [appears at stated age] Derm: [warm], [dry] Head: [atraumatic], [normocephalic], [symmetric] Eyes: [EOMI], [no lid lag], [anicteric sclera] Mouth: [no lip lesion], [mucus membranes moist] Cardiovascular: [S1S2 reg], [no murmur], [positive DP pulse bilateral], Lungs: [CTA bilateral], [no rhonchi, no rales] , [no accessory muscle use] Abdominal: [soft], [ nontender to palpation], [no guarding], [no appreciable organomegaly] Ext: [no gross muscle atrophy], [no edema], [no contractures] Neuro: [no focal neuro deficits] Psych: [Alert], [oriented], [appropriate affect] Meningitis Enlarged pituitary Acute kidney injury Troponin elevation CSF cultures are so far negative. Viral panel was negative. Coronavirus testing was negative. ESR and CRP are elevated. Antibiotics switched to meropenem by ID, to continue for 2 weeks in the outpatient setting, midline obtained. Hydrocortisone discontinued with normal MRI pituitary and MRA by neurology. CSF analysis shows elevated total nucleated cells with 88% mononuclear WBCs pointing towards viral picture versus listeria. Pain control with gabapentin. Case was discussed with Dr. Cardoza. MRI pituitary shows upper limit of normal sized pituitary with no adenoma. MRA unremarkable. Discussed with neurology, plans to DC hydrocortisone. ACTH nega tive. LH, FSH negative. Cr 1.36. Continue IVF at a lower dose. Avoid nephrotoxins. Repeat BMP tomorrow morning. Follow nephrology recommendations. Trop mildly elevated at 0.045. Repeat negative. Likely non thrombotic. Continue to monitor. [Patient admitted for meningitis. On IV antibiotics. Cultures are negative. Plans are midline today and 2 weeks of meropenem IV in the outpatient setting. Plans for DC home today. This complex discharge took about 45 minutes to complete. ] Pertinent Studies: Brain CT, chest x-ray, CT internal auditory canal, MRI brain, echocardiogram, bladder ultrasound, MRA head and neck, MRI pituitary Procedures: Lumbar puncture Patient Condition at Discharge: Stable Plan - Discharge Summary Discharge Rx Participant: Yes New Discharge Prescriptions: New Meropenem [Merrem] 2 gm IVPB Q8HR 14 Days vial Acetaminophen-Codeine 300-30mg [Tylenol w/codeine #3] 1 tab PO Q4H PRN 3 Days #18 tablet PRN Reason: Pain Gabapentin [Neurontin] 100 mg PO TID #45 cap Continue Acetaminophen Tab [Tylenol] 1,000 mg PO Q8H PRN PRN Reason: Pain Or Fever > 100.5 Loratadine-Pseudoeph 5-120 mg [Claritin-D 12 Hour] 1 tab PO Q12HR PRN PRN Reason: Cold Symptoms Magnesium Oxide [Magox 400] 400 mg PO DAILY Discontinued Levofloxacin [Levaquin] 750 mg PO DAILY 3 Days #3 tab Ibuprofen 600 mg PO Q8H PRN PRN Reason: Pain Or Fever > 100.5 Discharge Medication List Acetaminophen Tab [Tylenol] 1,000 mg PO Q8H PRN 02/22/20 [History] Loratadine-Pseudoeph 5-120 mg [Claritin-D 12 Hour] 1 tab PO Q12HR PRN 02/22/20 [History] Magnesium Oxide [Magox 400] 400 mg PO DAILY 02/22/20 [History] Acetaminophen-Codeine 300-30mg [Tylenol w/codeine #3] 1 tab PO Q4H PRN 3 Days #18 tablet 03/03/20 [Rx] Gabapentin [Neurontin] 100 mg PO TID #45 cap 03/03/20 [Rx] Meropenem [Merrem] 2 gm IVPB Q8HR 14 Days vial 03/03/20 [Rx] Follow up Appointment(s)/Referral(s): Lita Garcia MD [REFERRING] - 1 Week (office will call with appointment time) [facility], [NON-STAFF] - [facility],Infusion [NON-STAFF] - (Please call [facility] with any questions regarding home IV antibiotics or supplies. ) None,Stated [Primary Care Provider] - 1-2 days Norbert Cardoza MD [STAFF PHYSICIAN] - 03/17/20 2:30 pm Patient Instructions/Handouts: Bacterial Meningitis (ED), Complications of Infection (GEN), How to Care for Your Midline Catheter (DC), How to Flush Your PICC or Midline Catheter (DC), Peripherally Inserted Central Catheters and Midline Catheters (DC) Activity/Diet/Wound Care/Special Instructions: Diet: Regular Follow up with your primary care provider within 3 days of discharge Follow up with Neurology within 1 week of discharge. Follow up with Infectious Diseases within 1 week of discharge. [facility] will deliver you outpatient IV antibiotic supplies tonight. They will call first. [facility] will come first thing tomorrow to initiate home IV antibiotic therapy and teaching. Discharge Disposition: HOME SELF-CARE
[2020-03-03 15:24] VITALS: BP 127/79; PULSE 63; RESP 16; TEMP 97.8
== END 2020-03-03 16:05 | disposition home health service (06) | DRG 871 ==
LOC: EC 13:17 → 4SSUR 19:40
PROVIDERS: ADMIT Internal Medicine; ATTEND Internal Medicine
PROC: 00JU3ZZ Inspection of Spinal Canal, Percutaneous Approach (ICD-10-PCS; principal; 2020-02-22)
PROC: 009U3ZX Drainage of Spinal Canal, Percutaneous Approach, Diagnostic (ICD-10-PCS; 2020-02-25)
PROC: 05HF33Z Insertion of Infusion Device into Left Cephalic Vein, Percutaneous Approach (ICD-10-PCS; 2020-02-29)
DX: A41.89 Other specified sepsis (principal); N17.0 Acute kidney failure with tubular necrosis; G00.9 Bacterial meningitis, unspecified; R65.20 Severe sepsis without septic shock; Z20.828 Contact with and (suspected) exposure to other viral communicable diseases; Z71.3 Dietary counseling and surveillance; D72.810 Lymphocytopenia; R79.89 Other specified abnormal findings of blood chemistry; D50.9 Iron deficiency anemia, unspecified; T37.5X5A Adverse effect of antiviral drugs, initial encounter; G43.909 Migraine, unspecified, not intractable, without status migrainosus; T39.395A Adverse effect of other nonsteroidal anti-inflammatory drugs [NSAID], initial encounter; T36.8X5A Adverse effect of other systemic antibiotics, initial encounter; Z79.899 Other long term (current) drug therapy
CPT/HCPCS: 36410; 36415; 62270; 62328; 70450; 70481; 70544; 70551; 70553; 71045; 76770; 76937; 80048; 80053; 80202; 81001; 81003; 82024; 82550; 82570; 82728; 82945; 83001; 83002; 83003; 83540; 83550; 83605; 83615; 83735; 83880; 84100; 84145; 84156; 84157; 84300; 84443; 84484; 84540; 85025; 85379; 85610; 85652; 86140; 86695; 86696; 87040; 87070; 87205; 87252; 87390; 87496; 87498; 87529; 87798; 87801; 88108; 89050; 93306; 96361; 96365; 96375; 96376; 99285

== ENCOUNTER → 2020-04-07 | Outpatient (CLI) | payer OTHER ==
[2020-04-07 16:06] LABS: Basophils % (A) 1 %; Eosinophils # (A) 0.1 k/uL (0-0.7); Eosinophils % (A) 1 %; HGB 12.8 gm/dL (13.0-17.5); Lymphocytes # (A) 1.8 k/uL (1.0-4.8); Lymphocytes % (A) 28 %; MCH 28.3 pg (25.0-35.0); MCHC 32.8 g/dL (31.0-37.0); MCV 86.3 fL (80.0-100.0); Mean Platelet Volume 8.6; Monocytes # (A) 0.3 k/uL (0-1.0); Monocytes % (A) 4 %; Neutrophils # (A) 4.1 k/uL (1.3-7.7); Neutrophils % (A) 64 %; Platelet Count 164 k/uL (150-450); RBC 4.52 m/uL (4.30-5.90); RDW 13.6 % (11.5-15.5); WBC 6.4 k/uL (3.8-10.6)
[2020-04-08 01:10] LABS: Erythrocyte Sedimentation Rate 27 mm/Hr (0-15)
[2020-04-08 02:02] LABS: African American GFR (CKD) 77.6 (60.0-200.0); BUN/Creat Ratio 14.29 Ratio (12.00-20.00); C Reactive Protein <0.4 mg/dL (0.0-0.8); Calcium 9.4 mg/dL (8.7-10.3); Carbon Dioxide 27.1 mmol/L (21.6-31.8); Chloride 103 mmol/L (96-109); Glucose 102 mg/dL (70-110); Non-African American GFR(CKD) 66.9 (60.0-200.0); Sodium 140 mmol/L (135-145)
== END | disposition home or self-care (01) ==
LOC: LABWHC1 15:03
PROVIDERS: ATTEND Internal Medicine Infectious Disease
DX: G03.9 Meningitis, unspecified (principal)
CPT/HCPCS: 36415; 80048; 85025; 85652; 86140

== ENCOUNTER → 2020-05-21 | Outpatient (CLI) | payer OTHER ==
[2020-05-21 14:49] LABS: Basophils % (A) 1 %; Eosinophils # (A) 0.1 k/uL (0-0.7); Eosinophils % (A) 2 %; HCT 42.6 % (39.0-53.0); HGB 14.1 gm/dL (13.0-17.5); Lymphocytes # (A) 1.6 k/uL (1.0-4.8); Lymphocytes % (A) 26 %; MCH 29.5 pg (25.0-35.0); MCHC 33.1 g/dL (31.0-37.0); MCV 89.1 fL (80.0-100.0); Mean Platelet Volume 8.8; Monocytes # (A) 0.3 k/uL (0-1.0); Monocytes % (A) 5 %; Neutrophils % (A) 65 %; Platelet Count 189 k/uL (150-450); RBC 4.78 m/uL (4.30-5.90); RDW 13.6 % (11.5-15.5); WBC 6.2 k/uL (3.8-10.6)
[2020-05-21 20:35] LABS: African American GFR (CKD) 71.4 (60.0-200.0); BUN/Creat Ratio 15.33 Ratio (12.00-20.00); C Reactive Protein <0.4 mg/dL (0.0-0.8); Calcium 9.4 mg/dL (8.7-10.3); Carbon Dioxide 28.9 mmol/L (21.6-31.8); Chloride 104 mmol/L (96-109); Glucose 81 mg/dL (70-110); Non-African American GFR(CKD) 61.6 (60.0-200.0); Potassium 4.5 mmol/L (3.5-5.5); Sodium 140 mmol/L (135-145)
[2020-05-22 00:36] LABS: Erythrocyte Sedimentation Rate 13 mm/Hr (0-15)
== END ==
LOC: LABWHC1 12:23
PROVIDERS: ATTEND Internal Medicine Infectious Disease
DX: G03.9 Meningitis, unspecified (principal)
CPT/HCPCS: 36415; 80048; 85025; 85652; 86140